=== PATIENT | female | born 1980 | race Caucasian/White ===

== ENCOUNTER 2017-04-06 19:14 | Day surgery (SDC) | payer OTHER ==
[2017-04-06 19:44] VITALS: BP 140/88; TEMP 98.6; BMI 29.0
--- NOTE | 2017-04-06 20:09 | PDOC.EVN ---
Event Note - Event Note Event Note: @2000: Please see full handwritten H&P in chart. In brief: H&P in triage HPI: 37 yo prior . Pt of Raad. Here for lower cramping, s/p intercourse yesterday. Past HX PIH, no CHTN. No VB, no HERRMANN, no visual changes, no RUQ pain. Good FM. EGA=30 weeks Review of systems: completed and neg per HPI Past med: HX DI 2008 Social: Past ETOH use, none currently Past Surg: Prior cholecystectomy, prior wisdom teeth All: sulfa Physical: 140/90s, 100, afebrile NAD Abd soft, NT CX 03/22/-2/I Monitors: Class i, irregular ctx on toco Assessment/Plan: 1. AMA (37 yo) 2. Elevated BPs- PIH eval, UP/Cr No evidence severe criteria at this time. 3. Lower pelvic contractions: Check cervical length. No FFN as sex within 24 hours 4. Observe BPs for now.
[2017-04-06 20:40] LABS: Hemoglobin 11.1 g/dL (12.0-16.0); Mean Corpuscular HGB CONC 33.9 g/dL (32.0-36.0); Mean Corpuscular Hemoglobin 31.2 pg (27.0-31.0); Mean Corpuscular Volume 91.9 fl (81.0-99.0); Mean Platelet Volume 9.4 fL (7.4-10.4); Platelet Count 158 thou/uL (130-400); Red Blood Cell (RBC) Count 3.55 mill/uL (4.20-5.40)
--- NOTE | 2017-04-06 20:59 | ULT ---
OB ULTRASOUND LIMITED 04/06/17 CLINICAL HISTORY: labor. Clinical evaluation of cervical length is requested. FINDINGS: Limited ultrasound of the pelvis performed to evaluate cervical length, which, as demonstrated sonogr aphically is slightly greater than 3 cm. IMPRESSION: Limited OB ultrasound to evaluate cervical length, which reveals a cervical length of slightly greate r than 3 cm. POS: [facility]
[2017-04-06 21:00] LABS: ALT (SGPT) 42 U/L (8-55); AST (SGOT) 36 U/L (5-34); Albumin 3.1 g/dL (3.5-5.0); Alkaline Phosphatase 106 U/L (40-150); Anion Gap 10 mmol/L (10-20); BUN (Urea Nitrogen) 5 mg/dL (7.0-18.7); Bilirubin, Total 0.3 mg/dL (0.2-1.2); Calc. Creatinine Clearance 150 mL/min (70-130); Calcium 8.1 mg/dL (7.8-10.44); Carbon Dioxide 20 mmol/L (22-29); Chloride 108 mmol/L (98-107); Estimated GFR-MDRD Greater than 90; Globulin 2.9 g/dL (2.4-3.5); Glucose 111 mg/dL (70-105); Potassium 3.3 mmol/L (3.5-5.1); Sodium 135 mmol/L (136-145)
--- NOTE | 2017-04-06 21:19 | PDOC.EVN ---
Event Note - Event Note Event Note: Labs seen: normal. Creatinine normal. Cervical length is 3.3 (normal). Awaiting U Protein. Pressures 130/70s.
[2017-04-06 22:20] LABS: Creatinine, Urine 77.37 mg/dL (47-110)
--- NOTE | 2017-04-06 22:26 | PDOC.EVN ---
Event Note - Event Note Event Note: @2230: UP/Cr ratio is normal at 0.1. Ok for outpatient follow up. BP check in 48 hours.
== END 2017-04-06 22:35 | disposition home or self-care (01) ==
LOC: L&D/OP 19:14
PROVIDERS: ATTEND Obstetrics & Gynecology
DX: O60.03 Preterm labor without delivery, third trimester (principal); O09.523 Supervision of elderly multigravida, third trimester; Z3A.30 30 weeks gestation of pregnancy; Z88.2 Allergy status to sulfonamides; Z90.49 Acquired absence of other specified parts of digestive tract
CPT/HCPCS: 36415; 76815; 80053; 82570; 84156; 85027; 99284

== ENCOUNTER 2017-04-12 11:52 | Inpatient (IN) | payer OTHER ==
[2017-04-12] MEDS: Lactated Ringer's 1,000 ML IV SCH ×2 (12:23→13:28)
[2017-04-12] MEDS ORDERED: Magnesium Sulfate 20 gm/500 ml 20 GM/500 ML BAG ONE (12:25)
[2017-04-12] MEDS ORDERED: Betamet Acet/Betamet Na Ph 30 MG/5 ML VIAL ONE (12:28)
[2017-04-12] MEDS ORDERED: Ondansetron HCl/PF 4 MG/2 ML Vial IVP PRN ×3 (12:29→19:57)
[2017-04-12] MEDS ORDERED: Calcium Gluconate 4.6 MEQ in Sodium Chloride 0.9% 100 ML IVPB PRN (12:29)
[2017-04-12] MEDS ORDERED: Acetaminophen 500 MG TAB PO PRN (12:29)
[2017-04-12] MEDS ORDERED: Promethazine HCl 25 MG/ML VIAL IM PRN ×2 (12:29→15:12)
[2017-04-12] MEDS ORDERED: Docusate 100 MG CAP PO PRN (12:29)
[2017-04-12] MEDS ORDERED: Magnesium Sulfate 20 gm/500 ml 20 GM/500 ML BAG IVPB SCH (12:30)
[2017-04-12] MEDS ORDERED: Magnesium Sulfate 20 GM/WATER 500 ML BAG IVPB SCH (12:30)
[2017-04-12 12:35] VITALS: BMI 28.8
--- NOTE | 2017-04-12 12:44 | PDOC.LDHP ---
Labor and Delivery H&P Chief complaint: contractions HPI: 36 yo WF EDC= 06/15/17 presents c/o painful UCs and bleeding since this AM. Current gestational age (weeks): 30 Due date: 06/15/17 Dating criteria: last menstrual period, first trimester ultrasound Grav: 2 Para: 1 Current complications: hypertension Abnormal US findings: No Past Medical History: h/o inductiomn for PIH Current medications: pre-rios vitamins Allergies/Adverse Reactions: Allergies Allergy/AdvReac Type Severity Reaction Status Date / Time Sulfa (Sulfonamide Allergy Intermediate Rash Verified 04/06/17 19:35 Antibiotics) Social history: alcohol use - Physical Exam Vital signs reviewed and normal: yes General: breathing through contractions Heart: RRR Lungs: nonlabored breathing Abdomen: gravid Extremeties: trace edema FHT: variability present - Vaginal Exam cm dilated: 4 Effacement: 100% Station: -2 - Assessment 30 weeks, PTL - Plan Plan: admit to L&D, magnesium for neuroprotection, other (Steroids for FLM Dr. Shankar notified Neonatology notified)
[2017-04-12 12:51] LABS: Hemoglobin 11.6 g/dL (12.0-16.0); Mean Corpuscular HGB CONC 34.9 g/dL (32.0-36.0); Mean Corpuscular Hemoglobin 31.2 pg (27.0-31.0); Mean Corpuscular Volume 89.5 fl (81.0-99.0); Mean Platelet Volume 9.6 fL (7.4-10.4); Platelet Count 168 thou/uL (130-400); RBC Distribution Width 12.5 % (11.5-14.5); Red Blood Cell (RBC) Count 3.71 mill/uL (4.20-5.40)
[2017-04-12 13:11] LABS: ALT (SGPT) 34 U/L (8-55); AST (SGOT) 35 U/L (5-34); Albumin 3.3 g/dL (3.5-5.0); Alkaline Phosphatase 105 U/L (40-150); Anion Gap 13 mmol/L (10-20); BUN (Urea Nitrogen) 6 mg/dL (7.0-18.7); Bilirubin, Total 0.4 mg/dL (0.2-1.2); Calc. Creatinine Clearance 147 mL/min (70-130); Calcium 8.3 mg/dL (7.8-10.44); Carbon Dioxide 20 mmol/L (22-29); Chloride 105 mmol/L (98-107); Estimated GFR-MDRD Greater than 90; Globulin 2.7 g/dL (2.4-3.5); Glucose 104 mg/dL (70-105); Magnesium 1.7 mg/dL (1.6-2.6); Potassium 3.8 mmol/L (3.5-5.1); Sodium 134 mmol/L (136-145)
[2017-04-12] MEDS ORDERED: Ampicillin 2 GM, Syringe 5.2 ML in Sterile Water 14.8 ML SLOW IVP SCH (13:15)
[2017-04-12 13:33] LABS: HBSAg Index 0.13 S/CO (0-0.99); HIV (1/2) Antibody/Antigen Non-Reactive (NonReactive); HIV 1/2 INDEX 0.13 S/CO (<1.00); Hep B Surf Ag Non-Reactive S/CO (NonReactive)
[2017-04-12 13:42] LABS: Syphilis Antibody Nonreactive (Nonreactive); Syphilis Antibody Index 0.05 S/CO (<1.00 Non-Reactive)
[2017-04-12] MEDS ORDERED: Bupivacaine 0.5% 20 ML, Fentanyl 400 MCG in Sodium Chloride 0.9% 72 ML EPIDURAL SCH (14:15)
[2017-04-12] MEDS ORDERED: Fentanyl 100 MCG/2 ML VIAL EPIDURAL ONE (14:40)
[2017-04-12] MEDS ORDERED: Fentanyl 100 MCG/2 ML VIAL ONE (14:45)
[2017-04-12] MEDS ORDERED: Acetaminophen 325 MG TAB PO PRN (15:12)
[2017-04-12] MEDS ORDERED: Eucerin (Mineral Oil/Petrolatum,White) 30 gm Jar TOP PRN (15:12)
[2017-04-12] MEDS ORDERED: Lactated Ringer's 500 ML IV PRN (15:12)
[2017-04-12] MEDS ORDERED: ePHEDrine/0.9% NaCl/PF SYRINGE 50 mg/10 ml SLOW IVP PRN (15:12)
[2017-04-12] MEDS ORDERED: Naloxone HCl 0.4 mg/ml Vial IVP PRN ×2 (15:12)
[2017-04-12] MEDS ORDERED: diphenhydrAMINE 50 MG/ML VIAL IVP PRN (15:12)
[2017-04-12] MEDS ORDERED: [UNRECOGNIZED DRUG - REMARK] FS SCH (15:15)
[2017-04-12] MEDS ORDERED: Fentanyl 4mcg/Marcaine 0.1% Cassette 100 ML EPIDURAL SCH (15:15)
[2017-04-12 16:56] LABS: Bilirubin Negative (Negative); Blood, Urine Moderate (Negative); Clarity CLEAR (Clear); Glucose, Urine (Dipstick) Negative (Negative); Leukocyte Negative (Negative); Nitrite Negative (Negative); Protein, Urine (Dipstick) Negative (Neg-Trace); Specific Gravity, Urine 1.039 (1.002-1.036); Urobilinogen 0.2 mg/dL (0.2-1.0); pH, Urine 6.5 (5.0-9.0)
[2017-04-12 16:57] LABS: Bacteria/HPF None Seen HPF (None Seen); Hyaline Casts/LPF 0-3 HYALINE CAST LPF (0-3 Hyaline); Pathc Cast-AUWi Flag 0.27 (0-2.49); RBC/HPF 21-50 HPF (0-3); WBC/HPF 0-3 HPF (0-3)
[2017-04-12 17:01] LABS: Renal Epithelial None Seen HPF (0-3); Transitional Epithelial NONE SEEN HPF (0-3)
[2017-04-12] MEDS ORDERED: LR / Pitocin 40 units/1000 ml 1,000 ML ONE (17:38)
[2017-04-12] MEDS ORDERED: Lidocaine 1% (PF) 30 ML VIAL ONE (17:39)
[2017-04-12] MEDS: Betamet Acet/Betamet Na Ph 30 MG/5 ML VIAL IM SCH (19:20)
[2017-04-12] MEDS ORDERED: Acetaminophen/Codeine 30-300mg Tablet PO PRN (19:57)
[2017-04-12] MEDS ORDERED: Adacel (T-DAP) 0.5 ML VIAL IM ONE (19:57)
[2017-04-12] MEDS ORDERED: Milk Of Magnesia 30 ML UDCUP PO PRN (19:57)
[2017-04-12] MEDS ORDERED: Bisacodyl 10 MG SUPP PR PRN (19:57)
[2017-04-12] MEDS ORDERED: Lanolin Ointment 7 GM TUBE TOP PRN (19:57)
[2017-04-12] MEDS ORDERED: LR / Pitocin 40 units/1000 ml 1,000 ML IV SCH (20:00)
--- NOTE | 2017-04-12 20:13 | OP ---
DATE OF DELIVERY: 04/12/2017 DELIVERING PHYSICIAN: Alvaro Vázquez M.D. ATTENDING PHYSICIAN: Zandra Shankar M.D. PREOPERATIVE DIAGNOSIS: A 30-week intrauterine with labor. POSTOPERATIVE DIAGNOSIS: A 30-week intrauterine with labor. PROCEDURE: Vaginal delivery. ESTIMATED BLOOD LOSS: 250 mL TECHNIQUE IN DETAIL: I was called to see the patient for a persistent variable appearing deceleratio ns. On exam, the patient was noted to be completely dilated with a bulging bag. The head was not well placed across the cervix. I needled the membranes to allow a slow escape of clear amniotic fluid. This brought the baby's head down and she was able to deliver within a single push. NICU per sonnel were in attendance. There was a delivery of a viable male with weight and Apgars pending was accomplished. The placenta was delivered, intact Anderson and was sent to pathology. The perineum wa s intact. At the conclusion of the case, her uterus was firm. The baby was taken to the NICU for fu rther evaluation.
[2017-04-12] MEDS ORDERED: Docusate Calcium (SURFAK) 240 MG CAP PO SCH (21:00)
[2017-04-13] MEDS: Ibuprofen 800 MG TAB PO SCH ×5 (02:16→21:24)
[2017-04-13] MEDS: Lactated Ringer's 1,000 ML IV SCH ×4 (06:28→22:44)
[2017-04-13 06:50] LABS: Hemoglobin 10.8 g/dL (12.0-16.0); Mean Corpuscular HGB CONC 33.9 g/dL (32.0-36.0); Mean Corpuscular Hemoglobin 31.1 pg (27.0-31.0); Mean Corpuscular Volume 91.8 fl (81.0-99.0); Mean Platelet Volume 9.8 fL (7.4-10.4); Platelet Count 167 thou/uL (130-400); RBC Distribution Width 12.7 % (11.5-14.5); Red Blood Cell (RBC) Count 3.46 mill/uL (4.20-5.40); White Blood Cell (WBC) Count 17.4 thou/uL (4.8-10.8)
[2017-04-13] MEDS ORDERED: traMADol HCl 50 MG TAB PO PRN (07:40)
[2017-04-13] MEDS ORDERED: Adacel (T-DAP) 0.5 ML VIAL IM ONE (07:40)
[2017-04-13] MEDS ORDERED: Milk Of Magnesia 30 ML UDCUP PO PRN (07:40)
[2017-04-13] MEDS ORDERED: Bisacodyl 10 MG SUPP PR PRN (07:40)
[2017-04-13] MEDS ORDERED: diphenhydrAMINE 25 MG CAP PO PRN (07:40)
[2017-04-13] MEDS ORDERED: Benzocaine/Menthol 20-0.5% 60 ML CAN TOP PRN (07:40)
[2017-04-13] MEDS ORDERED: Preparation H Ointment 28 GM TUBE PR PRN (07:40)
--- NOTE | 2017-04-13 07:44 | PDOC.EVN ---
Event Note - Event Note Event Note: No c/o's. Baby doing well in NICU. On bubble cpap with 27% os. received surfactant. O: 140/70 98.2 abdomen soft non tender fundus firm scant lochia A/P post day 1 -- at 30-31 weeks. ptl , possible abruption. routine care..d/c 04/14.
[2017-04-13] MEDS ORDERED: LR / Pitocin 40 units/1000 ml 1,000 ML IV SCH (07:45)
[2017-04-13] MEDS ORDERED: Ferrous Sulfate 325 MG TAB PO SCH (08:00)
[2017-04-13] MEDS ORDERED: FLU VACC QS2017-18 36 mo. & older 0.5 ML SYRINGE IM ONE (09:00)
[2017-04-13] MEDS: Prenatal Vitamin 1 TAB PO SCH ×2 (09:13→19:26)
[2017-04-13] MEDS: Docusate Calcium (SURFAK) 240 MG CAP PO SCH ×2 (09:13→21:24)
[2017-04-13] MEDS: Ferrous Sulfate 325 MG TAB PO SCH ×2 (09:13→19:28)
[2017-04-13] MEDS: FLUoxetine HCl 20 MG CAP PO SCH (09:14)
[2017-04-13] MEDS: Betamet Acet/Betamet Na Ph 30 MG/5 ML VIAL IM SCH (19:26)
[2017-04-13] MEDS ORDERED: hydrOXYzine 25 MG TAB PO SCH (20:30)
[2017-04-13 22:43] VITALS: TEMP 98.1
[2017-04-14] MEDS: Ibuprofen 800 MG TAB PO SCH ×2 (06:16)
--- NOTE | 2017-04-14 07:49 | PDOC.PP ---
Post Progress Note Post Day #: 2 Subjective: Baby is doing better. Would like to go home today. PO intake tolerated: yes Flatus: yes Ambulation: yes Vital Signs (12 hours) Temp Pulse Resp BP 04/13/17 19:55 97.6 F 95 20 137/80 Weight Weight 168 lb - Physical Examination General: NAD Cardiovascular: no m/r/g, RRR Respiratory: clear to auscultation bilaterally, non-labored breathing Abdominal: + bowel sounds, lochia, no distention, appropriately TTP Result Diagrams: 04/13/17 06:02 04/12/17 12:25 Additional Labs: Post Labs Blood Type O NEGATIVE 04/12/17 12:25 Hep Bs Antigen Non-Reactive S/CO (NonReactive) 04/12/17 12:25 - Assessment/Plan post day 2..recovering well. D/c home. F/u in 6 weeks. To continue prozac 40 mg/d. Will restart her buspar.
[2017-04-14] MEDS: Ferrous Sulfate 325 MG TAB PO SCH (08:14)
[2017-04-14 09:33] VITALS: BP 137/83
[2017-04-14] MEDS: FLUoxetine HCl 20 MG CAP PO SCH (10:02)
[2017-04-14] MEDS: Docusate Calcium (SURFAK) 240 MG CAP PO SCH (10:02)
[2017-04-14] MEDS: Prenatal Vitamin 1 TAB PO SCH ×2 (10:02→10:05)
--- NOTE | 2017-04-15 14:25 | DIS ---
DIAGNOSES: labor, 30-31 week gestation with spontaneous vaginal delivery. SUMMARY OF HOSPITAL COURSE: Ms. Cai is a 36-year-old white female who presented with regu lar painful contractions and vaginal bleeding to Labor and Delivery unit on 04/12/2017. She was init iated on magnesium for labor therapy and was also given IV hydration, pain medication. Also treated for group B strep prophylaxis due to her state. Unfortunately, the patient progresse d to spontaneous vaginal delivery of a viable male . knight, patient recovered satisf actorily and was discharged home on day 2. The baby was recovering in the NICU satisfacto luciano. She has a followup visit in 6 weeks .
== END 2017-04-14 11:29 | disposition home or self-care (01) | DRG 775 ==
LOC: L&D/OP 11:52 → L&D 13:07 → 3SW 04-13 13:47
PROVIDERS: ADMIT Obstetrics & Gynecology; ATTEND Obstetrics & Gynecology
PROC: 10E0XZZ Delivery of Products of Conception, External Approach (ICD-10-PCS; principal; 2017-04-12)
PROC: 10907ZC Drainage of Amniotic Fluid, Therapeutic from Products of Conception, Via Natural or Artificial Opening (ICD-10-PCS; 2017-04-12)
PROC: 3E0334Z Introduction of Serum, Toxoid and Vaccine into Peripheral Vein, Percutaneous Approach (ICD-10-PCS; 2017-04-13)
DX: O60.14X0 Preterm labor third trimester with preterm delivery third trimester, not applicable or unspecified (principal); O13.4 Gestational [pregnancy-induced] hypertension without significant proteinuria, complicating childbirth; Z3A.30 30 weeks gestation of pregnancy; Z37.0 Single live birth; O76 Abnormality in fetal heart rate and rhythm complicating labor and delivery
CPT/HCPCS: 36415; 51702; 76815; 80053; 81001; 82570; 83735; 85025; 85027; 85461; 86780; 86850; 86900; 86901; 87340; 87389; 88307; 90384; 90715; 96372; 99285; A4216; J0290; J0595; J0702; J2001; J2405; J3010; J3475; J3490; J7050

== ENCOUNTER 2017-12-25 19:39 | Inpatient (IN) | payer OTHER ==
[2017-12-25] MEDS ORDERED: Propofol 1,000 MG/100 ML VIAL IV ONE (19:45)
[2017-12-25 20:01] LABS: #Basophils 0.1 thou/uL (0.0-0.2); #Eosinphils 0.1 thou/uL (0.0-0.7); #Lymphocytes 1.6 thou/uL (1.20-3.40); #Monocytes 0.3 thou/uL (0.11-0.59); #Neutrophils 2.7 thou/uL (1.40-6.50); %Basophils 1.2 % (0.0-1.0); %Eosinophils 1.3 % (0.0-10.0); %Lymphocytes 34.2 % (21.0-51.0); %Monocytes 6.7 % (0.0-10.0); %Neutrophils 56.6 % (42.0-75.0); Hemoglobin 12.3 g/dL (12.0-16.0); Mean Corpuscular HGB CONC 34.2 g/dL (32.0-36.0); Mean Corpuscular Hemoglobin 32.6 pg (27.0-31.0); Mean Corpuscular Volume 95.3 fL (78.0-98.0); Mean Platelet Volume 8.2 fL (7.4-10.4); Platelet Count 204 thou/uL (130-400); RBC Distribution Width 13.1 % (11.5-14.5); Red Blood Cell (RBC) Count 3.78 mill/uL (4.20-5.40); White Blood Cell (WBC) Count 4.7 thou/uL (4.8-10.8)
[2017-12-25 20:07] LABS: Bilirubin Negative (Negative); Blood, Urine Negative (Negative); Clarity CLOUDY (Clear); Glucose, Urine (Dipstick) Negative (Negative); Leukocyte Trace (Negative); Nitrite Negative (Negative); Protein, Urine (Dipstick) Negative (Neg-Trace); Specific Gravity, Urine 1.005 (1.002-1.036); Urobilinogen 0.2 mg/dL (0.2-1.0); pH, Urine 7.5 (5.0-9.0)
[2017-12-25 20:08] LABS: Bacteria/HPF None Seen HPF (None Seen); Hyaline Casts/LPF 7-10 HYALINE CAST LPF (0-3 Hyaline); Pathc Cast-AUWi Flag 1.88 (0-2.49); Pregnancy Test - Urine (BHCG) Negative (Negative); Pregu Control Background? CLEAR/WHITE (CLR/WHITE); Pregu Control Bar Appear? YES (CONTROL BAR); RBC/HPF 0-3 HPF (0-3); Specific Gravity 1.005 (1.002-1.036); Squamous Epithelial 0-3 HPF (0-3); WBC/HPF 0-3 HPF (0-3)
--- NOTE | 2017-12-25 20:16 | RAD ---
AP VIEW CHEST: HISTORY: A 37-year-old with a drug overdose. Altered mental status. TECHNIQUE: AP view chest is obtained on 12/25/2017. FINDINGS: Nasogastric and endotracheal tubes in place. Mild cardiomegaly is seen. The lungs are well aerated. No evidence of acute intrathoracic abnormality is seen. No evidence of effusions, pneumonia, or pn eumothorax is seen. IMPRESSION: Nasogastric and endotracheal tubes in good position. POS: [facility]
[2017-12-25 20:17] LABS: Amphetamine Not Detected (NotDetected); Barbiturates Screen Not Detected (NotDetected); Benzodiazepine Screen Detected (NotDetected); Cocaine Metabolite Screen Not Detected (NotDetected); Medtox Control Line Valid? VALID (VALID); Medtox Reader # READER 4; Methadone Not Detected (NotDetected); Methamphetamine Not Detected (NotDetected); Opiate Screen Not Detected (NotDetected); Oxycodone Screen Not Detected (NotDetected); Phencyclidine (PCP) Not Detected (NotDetected); THC/Cannabinoid Screen Not Detected (NotDetected); Tricyclic Screen Detected (NotDetected)
[2017-12-25 20:21] LABS: Acetaminophen Less than 6.0 mcg/mL (10.0-30.0); Alcohol 126 mg/dL (Less than 10); Salicylate Less than 8.0 mg/dL (15.0-30.0)
[2017-12-25 20:27] LABS: Actual Bicarbonate (HCO3a) 20.3 mEq/L (22-28); Analyzer IN Cardio ER; Base Excess (BEa) -3.8 mEq/L (-2.0 to +3.0); CO2 Tension 33.9 mmHg (35.0-45.0); Calcium, Ionized 1.18 mmol/L (1.12-1.30); Carboxyhemoglobin (COHb) 0.3 gm% (0.0-3.0); Hemoglobin (Hb) 12.6 g/dL (12.0-16.0); O2 Tension (PaO2) 149.6 mmHg (80.0-100.0); Potassium - ABG Lab 3.56 mmol/L (3.70-5.30)
--- NOTE | 2017-12-25 20:27 | CT ---
CT BRAIN: HISTORY: A 37-year-old with a history of an overdose. TECHNIQUE: Noncontrast enhanced CT images of the brain are obtained from the base of the skull through the verte x. Brain and bone windows are obtained. FINDINGS: CT images of the brain demonstrate the brain to be unremarkable. No evidence of intracranial masses, hemorrhages, strokes, or contusions seen. IMPRESSION: Normal CT brain. POS: [facility]
--- NOTE | 2017-12-25 20:28 | CT ---
CT CERVICAL SPINE: HISTORY: Altered mental status. TECHNIQUE: Axial images are obtained with coronal and sagittal reconstructions. FINDINGS: CT images of the cervical spine demonstrate cervical spine alignment to be within normal limits. No evidence of fractures or subluxations seen. Vertebral bodies and facets are in normal alignment. IMPRESSION: Normal CT cervical spine. POS: [facility]
[2017-12-25 20:30] LABS: Troponin I Less than 0.010 ng/mL (< 0.028)
[2017-12-25 20:39] LABS: ALV-art Gradient 235.825 (0-20); Puncture Site RBA
[2017-12-25 20:41] LABS: ALT (SGPT) 37 U/L (8-55); AST (SGOT) 33 U/L (5-34); Albumin 4.1 g/dL (3.5-5.0); Alkaline Phosphatase 65 U/L (40-150); Anion Gap 14 mmol/L (10-20); BUN (Urea Nitrogen) 11 mg/dL (7.0-18.7); Bilirubin, Total Less than 0.2 mg/dL (0.2-1.2); Calc. Creatinine Clearance 0 mL/min (70-130); Calcium 8.7 mg/dL (7.8-10.44); Carbon Dioxide 22 mmol/L (22-29); Chloride 110 mmol/L (98-107); Estimated GFR-MDRD 81; Globulin 2.2 g/dL (2.4-3.5); Glucose 106 mg/dL (70-105); Potassium 3.5 mmol/L (3.5-5.1); Protein, Total 6.3 g/dL (6.0-8.3); Sodium 142 mmol/L (136-145)
[2017-12-25] MEDS ORDERED: Dextrose 5 % And 0.9 % NaCl 1,000 ML IV SCH ×2 (22:20→22:30)
[2017-12-25] MEDS ORDERED: Acetaminophen 650 MG/20.3 ML UDCUP PO PRN (22:30)
[2017-12-25] MEDS ORDERED: Acetaminophen 650 MG Suppository PR PRN (22:30)
[2017-12-25] MEDS ORDERED: Ventilator Sedation Protocol 1 EACH FS SCH (22:30)
[2017-12-25] MEDS ORDERED: Lorazepam 2 MG/ML VIAL SLOW IVP PRN (22:36)
[2017-12-25] MEDS ORDERED: Fentanyl BOLUS 250 ML IVPB PRN (22:36)
[2017-12-25] MEDS ORDERED: fentaNYL Citrate/PF 2,000 MCG in Sodium Chloride 0.9% 60 ML IV SCH (22:36)
[2017-12-25] MEDS ORDERED: Propofol BOLUS 1,000 MG/100 ML VIAL IV PRN (22:36)
[2017-12-25] MEDS ORDERED: DISCONTINUE PREVIOUS NARCOTIC PAIN MEDICATIONS AND BENZODIAZEPINES FS SCH (22:36)
[2017-12-25] MEDS ORDERED: Propofol 1,000 MG/100 ML VIAL IV PRN (22:36)
[2017-12-25] MEDS ORDERED: Morphine 4 MG/ML VIAL SLOW IVP PRN (22:37)
[2017-12-25] MEDS ORDERED: Ondansetron PF 4 MG/2 ML Vial IVP PRN (22:42)
[2017-12-25] MEDS ORDERED: Ondansetron ODT 4 MG TAB PO PRN (22:42)
--- NOTE | 2017-12-25 23:54 | HP ---
DATE OF ADMISSION: 12/25/2017 PRIMARY CARE PHYSICIAN: [facility] call admission. The patient follows Dr. Shankar. REASON FOR ADMISSION: Overdose. HISTORY OF PRESENT ILLNESS: The patient is a 37-year-old female with depression, was brought in by E with the above complaints. The EMS reported that patient got into an argument with her an d asked for a divorce, then left for the gym. When he returned, he found the patient face do wn surrounded by vomit and empty medication bottles that included Seroquel, Ambien, Prozac and other over the counter medications. When EMS arrived, the patient's GCS score was 4. She was awake, howev er, not responding. She was intubated by EMS and brought into the emergency room. In the emergency room, initial vital signs showed temperature 95.5, respiration of 16, pulse rate of 123 with blood pressure 125/69 with O2 saturation 99% on ventilation. CT head was negative. Cervica l spine CT was negative. EKG showed sinus tachycardia. Urine drug screen was positive for tricyclic s and benzodiazepines. Alcohol level was 126. test was negative. Chest x-ray was negativ e for infiltrate. PAST MEDICAL HISTORY: Depression with Zoloft overdose in 01/2017. The patient was admitted at this facility. She was discharged home with a safety plan. Alcohol abuse. PAST SURGICAL HISTORY: 1. Cholecystectomy. 2. Childbirth. ALLERGIES: The patient is allergic to SULFA. CURRENT HOME MEDICATIONS: To be verified. SOCIAL HISTORY: As discussed above. The patient has a history of alcoholism. She currently lives a t home. FAMILY HISTORY: Negative per previous record. REVIEW OF SYSTEMS: Cannot be obtained from the patient due to current cognitive status. Please note that history was obtained from the ER record no family at the bedside. PHYSICAL EXAMINATION: VITAL SIGNS: As discussed above. GENERAL: A 37-year-old female, intubated and sedated on mechanical ventilation. HEENT: Head atraumatic, normocephalic. Sclerae are anicteric. Pupils 3-4 mm with sluggish response to light. Endotracheal tube noted. LUNGS: Clear to auscultation bilaterally, no wheezing, rales or rhonchi. HEART: S1, S2 present. Regular rate and rhythm. No rubs or gallops. ABDOMEN: Soft. Bowel sounds present, no guarding or rigidity. EXTREMITIES: No edema or calf tenderness. NEUROLOGIC: Could not be done due to current cognitive status. PSYCHIATRIC: Could not be done due to current cognitive status. SKIN: Warm and dry. LYMPH NODES: No palpable lymph nodes in the neck. PERIPHERAL VASCULAR: Radial pulses palpable bilaterally. MUSCULOSKELETAL: No joint swelling or tenderness. LABORATORY AND X-RAY FINDINGS: CBC showed WBC 4.7 with hemoglobin 12.3, hematocrit 36, platelet 204. ABG showed pH of 7.4 with pCO2 of 33.9, pO2 149 with bicarbonate 21. Chemistries showed sodium 142 , potassium 3.5, chloride 110, bicarbonate 22, BUN 11, creatinine 0.79. Troponin was negative. Urin alysis showed 7-10 hyalin cast. Urine negative. Urine drug screen as discussed above. Ch est x-ray by my review as discussed above. EKG by my review as discussed above. IMPRESSION: 1. Acute respiratory failure secondary to drug overdose. 2. Alcohol intoxication. 3. Depression with Zoloft overdose in 01/2017. 4. History of alcoholism. 5. Chronic kidney disease stage 2. 6. Dehydration. PLAN: The patient will be monitored in the intensive care unit. Poison Control has been notified. They recommended conservative management. She received charcoal in the ER. We will continue aggress jasvir IV hydration. Critical care consultation. A.m. labs. Repeat chest x-ray and ABG in a.m. We wi ll consult [facility] when medically stable.
[2017-12-26 03:58] LABS: #Eosinphils 0.1 thou/uL (0.0-0.7); #Monocytes 0.9 thou/uL (0.11-0.59); #Neutrophils 7.1 thou/uL (1.40-6.50); %Basophils 0.3 % (0.0-1.0); %Eosinophils 0.6 % (0.0-10.0); %Lymphocytes 11.1 % (21.0-51.0); %Monocytes 9.5 % (0.0-10.0); %Neutrophils 78.5 % (42.0-75.0); Hemoglobin 12.4 g/dL (12.0-16.0); Mean Corpuscular HGB CONC 32.9 g/dL (32.0-36.0); Mean Corpuscular Hemoglobin 31.5 pg (27.0-31.0); Mean Corpuscular Volume 95.6 fL (78.0-98.0); Mean Platelet Volume 8.3 fL (7.4-10.4); Platelet Count 213 thou/uL (130-400); RBC Distribution Width 13.3 % (11.5-14.5); Red Blood Cell (RBC) Count 3.92 mill/uL (4.20-5.40); White Blood Cell (WBC) Count 9.1 thou/uL (4.8-10.8)
[2017-12-26 04:24] LABS: ALT (SGPT) 36 U/L (8-55); AST (SGOT) 23 U/L (5-34); Albumin 3.9 g/dL (3.5-5.0); Alkaline Phosphatase 61 U/L (40-150); Anion Gap 10 mmol/L (10-20); BUN (Urea Nitrogen) 9 mg/dL (7.0-18.7); Bilirubin, Total 0.4 mg/dL (0.2-1.2); Calc. Creatinine Clearance 82 mL/min (70-130); Calcium 9.2 mg/dL (7.8-10.44); Carbon Dioxide 23 mmol/L (22-29); Chloride 115 mmol/L (98-107); Estimated GFR-MDRD 57; Globulin 2.4 g/dL (2.4-3.5); Glucose 122 mg/dL (70-105); Phosphorus 1.9 mg/dL (2.3-4.7); Potassium 3.6 mmol/L (3.5-5.1); Protein, Total 6.3 g/dL (6.0-8.3); Sodium 144 mmol/L (136-145)
[2017-12-26] MEDS: Dextrose 5 %-0.45 % NaCl 1,000 ML IV SCH ×4 (04:41→20:00)
[2017-12-26] MEDS ORDERED: Potassium Phosphate 15 MMOL in Sodium Chloride 0.9% 250 ML 250 ML IVPB SCH (05:00)
[2017-12-26] MEDS ORDERED: Sodium Chloride 0.9% 500 ML IV SCH (05:00)
[2017-12-26 07:05] LABS: Actual Bicarbonate (HCO3a) 18.2 mEq/L (22-28); Base Excess (BEa) -5.5 mEq/L (-2.0 to +3.0); Calcium, Ionized 1.22 mmol/L (1.12-1.30); Carboxyhemoglobin (COHb) 0.7 gm% (0.0-3.0); Hemoglobin (Hb) 11.7 g/dL (12.0-16.0); O2 Tension (PaO2) 120.7 mmHg (80.0-100.0); Potassium - ABG Lab 3.76 mmol/L (3.70-5.30)
[2017-12-26 07:08] LABS: Puncture Site RR
[2017-12-26] MEDS: Famotidine/PF 20 mg/2ml Vial SLOW IVP SCH ×2 (08:30→20:00)
[2017-12-26] MEDS: Enoxaparin Sodium 40 MG/0.4 ML SYRINGE SC SCH (08:30)
--- NOTE | 2017-12-26 09:30 | RAD ---
CHEST ONE VIEW: History: Dyspnea. Comparison: 12-25-17 FINDINGS: Cardiac silhouette is magnified by projection. Pulmonary vasculature less engorged than on the prior study. Mediastinum is midline. Lines and tubes are unchanged in position. No evidence of pneumothorax . IMPRESSION: Improved aeration of the lungs with decrease in degree of pulmonary vascular congestion. POS: [facility]
[2017-12-26] MEDS: Thiamine HCl 200 MG/2 ML VIAL SLOW IVP SCH (09:46)
--- NOTE | 2017-12-26 10:03 | PDOC.PN ---
- Subjective Encounter Start Date: 12/26/17 Encounter Start Time: 08:50 Patient seen and examined. pt is intubated, present bedside, No overnight events - Objective Resuscitation Status: Resuscitation Status FULL:Full Resuscitation MAR Reviewed: Yes Vital Signs & Weight: Vital Signs (12 hours) Temp Pulse Resp BP Pulse Ox 12/26/17 08:00 16 12/26/17 06:45 73 94/63 12/26/17 06:00 16 12/26/17 04:00 99.2 F 16 12/26/17 03:06 100 12/26/17 03:05 85 12/26/17 02:00 16 12/26/17 01:00 99.9 F H 12/26/17 00:00 16 12/25/17 22:27 88 100/67 12/25/17 22:20 16 100 12/25/17 22:10 98.3 F Weight Admit Weight 160 lb 14.999 oz Weight 168 lb 3.403 oz Most Recent Monitor Data Heart Rate from ECG 67 NIBP 92/58 NIBP BP-Mean 69 Respiration from ECG 16 SpO2 100 I&O: 12/25/17 12/26/17 12/27/17 06:59 06:59 06:59 Intake Total 1749 212 Output Total 1550 275 Balance 199 -63 Result Diagrams: 12/26/17 03:39 12/26/17 03:39 Radiology Reviewed by me: Yes (chest xray) EKG Reviewed by me: Yes (nsr) Phys Exam - Physical Examination Constitutional: NAD intubated HEENT: PERRLA, sclera anicteric Neck: no JVD, supple Respiratory: no wheezing, no rales, no rhonchi Cardiovascular: RRR, no significant murmur, no rub Gastrointestinal: soft, no distention, positive bowel sounds Musculoskeletal: no edema, pulses present scd+ unable to assess Lymphatic: no nodes Deviation from normal: unable to assess Skin: no rash, normal turgor Dx/Plan (1) Acute respiratory failure Code(s): J96.00 - ACUTE RESPIRATORY FAILURE, UNSP W HYPOXIA OR HYPERCAPNIA Status: Acute Comment: due to drug overdose (2) Dehydration Code(s): E86.0 - DEHYDRATION Status: Acute (3) Drug overdose Code(s): T50.901A - POISONING BY UNSP DRUG/MEDS/BIOL SUBST, ACCIDENTAL, INIT Status: Acute (4) Hypophosphatemia Code(s): E83.39 - OTHER DISORDERS OF PHOSPHORUS METABOLISM Status: Acute (5) Suicidal ideation Code(s): R45.851 - SUICIDAL IDEATIONS Status: Acute (6) Alcohol abuse Code(s): F10.10 - ALCOHOL ABUSE, UNCOMPLICATED Status: Chronic (7) Anxiety and depression Code(s): F41.9 - ANXIETY DISORDER, UNSPECIFIED; F32.9 - MAJOR DEPRESSIVE DISORDER, SINGLE EPISODE, UNSPECIFIED Status: Chronic (8) CKD (chronic kidney disease) stage 2, GFR 60-89 ml/min Code(s): N18.2 - CHRONIC KIDNEY DISEASE, STAGE 2 (MILD) Status: Chronic - Plan cont current plan of care, plan discussed w/ family * continue vent management as per pulmonary * once pt is more alert, then pt will be extubated * then will need MHMR evaluation and placement to psych facility * medication reviewed as below * symptomatic treatment * discussed with . Review of Systems - Review of Systems Other: unable to review due to intubated status - Medications/Allergies Allergies/Adverse Reactions: Allergies Allergy/AdvReac Type Severity Reaction Status Date / Time Sulfa (Sulfonamide Allergy Intermediate Rash Verified 04/06/17 19:35 Antibiotics) Medications: Current Medications Acetaminophen (Tylenol Elixir) 650 mg PO Q6H PRN PRN Reason: Fever > 101 or Mild Pain Acetaminophen (Tylenol) 650 mg [place] Q6H PRN PRN Reason: Fever > 101 or Mild Pain Albuterol/Ipratropium (Duoneb) 3 ml NEB Q6H PRN PRN Reason: SOB &/or Wheezing Enoxaparin Sodium (Lovenox) 40 mg SC 0900 [facility] Last Admin: 12/26/17 08:30 Dose: 40 mg Famotidine (Pepcid) 20 mg SLOW IVP Q12HR [facility] Last Admin: 12/26/17 08:30 Dose: 20 mg Fentanyl Citrate 2,000 mcg/ (Sodium Chloride) 100 mls @ 0 mls/hr IV INF [facility]; Protocol Stop: 01/24/18 22:36 Fentanyl Citrate (Fentanyl Bolus) 250 mls @ 0 mls/hr IVPB PRN PRN PRN Reason: Breakthrough pain/agitation Stop: 01/24/18 22:36 Dextrose/Sodium Chloride (D5 1/2 Ns) 1,000 mls @ 150 mls/hr IV .Q6H40M [facility] Last Admin: 12/26/17 04:41 Dose: 1,000 mls Lorazepam (Ativan) 2 mg SLOW IVP Q1H PRN PRN Reason: Breakthrough agitation Stop: 01/24/18 22:36 Morphine Sulfate (Morphine) 2 mg SLOW IVP Q1H PRN PRN Reason: BREAKTHROUGH PAIN/AGITATION Stop: 01/24/18 22:38 Discontinue Previous Narcotic Pain Medications And Benzodiazepines 1 each FS .ONE [facility] Stop: 01/24/18 22:36 Ondansetron HCl (Zofran Odt) 4 mg PO Q6H PRN PRN Reason: Nausea/Vomiting Ondansetron HCl (Zofran) 4 mg IVP Q6H PRN PRN Reason: Nausea/Vomiting Propofol (Diprivan) 1,000 mg IV INF PRN; Protocol PRN Reason: TO ACHIEVE GOAL RASS Stop: 01/24/18 22:36 Propofol (Diprivan Bolus) 20 mg IV Q5MIN PRN PRN Reason: BREAKTHROUGH AGITATION Stop: 01/24/18 22:36 Sodium Chloride (Flush - Normal Saline) 10 ml IVF Q12HR [facility] Last Admin: 12/26/17 08:30 Dose: Not Given Sodium Chloride (Flush - Normal Saline) 10 ml IVF PRN PRN PRN Reason: Saline Flush Thiamine HCl (Thiamine Hcl) 100 mg SLOW IVP DAILY [facility] Last Admin: 12/26/17 09:46 Dose: 100 mg
--- NOTE | 2017-12-26 12:23 | CON ---
DATE OF CONSULTATION: 12/26/2017 SERVICE: Pulmonary Medicine. REASON FOR CONSULTATION: ICU patient. HISTORY OF PRESENT ILLNESS: The patient is a 37-year-old white female with past medical history sign ificant for depression. She actually just recently got out of an inpatient psychiatry war d. Ultimately, she got access to multiple different medications including Klonopin, multiple SSRIs, and Ambien. She took the entire bottles of all of these things and went into a deep sleep. She was brought in by EMS. In the ER, her GCS was low. Ultimately, she was intubated to protect her airway. She had multiple studies including CT of the head and C-spine that were unremarkable. At this poin t, there has been no interval change to her condition. Overnight, there were no issues. She is not on any sedation whatsoever. She is breathing comfortably. PAST MEDICAL HISTORY: 1. Major depressive disorder with history of suicide attempt. 2. Alcohol abuse. PAST SURGICAL HISTORY: Cholecystectomy. ALLERGIES: SULFA. MEDICATIONS: A list of her inpatient medications were reviewed. Multiple small updates were made. SOCIAL HISTORY: She has a history of heavy alcohol use. She currently lives at home. She has no ex posures to illicit drugs or tobacco products. FAMILY HISTORY: Noncontributory. REVIEW OF SYSTEMS: This cannot be obtained, as the patient is currently intubated and under the infl uence of multiple medications. PHYSICAL EXAMINATION: VITAL SIGNS: Afebrile, pulse 71, blood pressure 97/59, respirations 16, saturation 98% on 21% FiO2 a nd a PEEP of 5. GENERAL: Patient is intubated. HEENT: Normocephalic, atraumatic. Sclerae are white, conjunctivae pink. Oral and nasal mucosa is m oist without lesions. LUNGS: Decent air entry. There is no prolonged expiratory phase or wheezing present. HEART: Normal rate, regular. ABDOMEN: Soft, nontender, nondistended. Bowel sounds are positive. MUSCULOSKELETAL: No cyanosis or clubbing. There is no pitting in the bilateral lower extremities. NEUROLOGIC: Grossly nonfocal. She has a grimace, and withdraws from noxious stimuli in the bilatera l upper and lower extremities. Her pupils are equal, round, and reactive. She does over-breathe the ventilator when stimulated appropriately. At this time, she is not following any commands and remai ns in a deeply sedated state. LABORATORY DATA: WBC 9.1, hemoglobin 12.4, platelets 213,000. PH 7.40, pCO2 of 30, pO2 of 120 on 40 % FiO2 at that time. Phosphorus 1.9 and potassium 3.6. Basic metabolic profile, liver function stud ies are, otherwise, unremarkable. Cardiac enzymes negative x1. Urinalysis is negative, urine for pr egnancy negative. Plasma alcohol 126, benzodiazepines and TCAs are both detected in her urine drug s creen. Outside of that, it is completely unremarkable. IMAGING: Chest x-ray demonstrates no acute cardiopulmonary abnormality identified. There is some bl unting of the left costophrenic angle, possibly associated with some mild volume loss there. Endotra cheal tube is in perfect location, 2 cm above the level of the tracey. There is an enteric catheter coursing below the level of the diaphragm in the midline. CT of the C-spine demonstrates no acute os seous abnormality. CT of the brain demonstrates no acute intracranial abnormality. ASSESSMENT: 1. Metabolic encephalopathy. 2. Respiratory failure, secondary to inability to protect airway. 3. Suicide attempt with benzodiazepines, TCAs, SSRIs 4. Alcohol abuse. DISCUSSION AND PLAN: All sedating medications will be discontinued. We will leave a little bit of niall ropofol on board in case she wakes up in the middle of the night. As soon as her mentation allows, deniz keller will proceed with a spontaneous breathing trial and subsequent extubation. All laboratories and im aging studies will be suspended at this time. If she develops increasing signs of sepsis, empiric an tibiotics, directed at aspiration-related organisms, will be initiated. Potassium and phosphorus jeramy l be replaced gently today.
[2017-12-27] MEDS: Dextrose 5 %-0.45 % NaCl 1,000 ML IV SCH (05:31)
[2017-12-27 07:09] LABS: Actual Bicarbonate (HCO3a) 16.3 mEq/L (22-28); Base Excess (BEa) -7.8 mEq/L (-2.0 to +3.0); CO2 Tension 29.1 mmHg (35.0-45.0); Calcium, Ionized 1.25 mmol/L (1.12-1.30); Carboxyhemoglobin (COHb) 1.7 gm% (0.0-3.0); Hemoglobin (Hb) 12.4 g/dL (12.0-16.0); O2 Tension (PaO2) 85.3 mmHg (80.0-100.0); Potassium - ABG Lab 3.59 mmol/L (3.70-5.30); pH, Arterial 7.37 (7.35-7.45)
[2017-12-27 07:15] LABS: Puncture Site RB
[2017-12-27 07:16] LABS: ALV-art Gradient 28.055 (0-20)
[2017-12-27] MEDS: Famotidine/PF 20 mg/2ml Vial SLOW IVP SCH (09:51)
[2017-12-27] MEDS: Enoxaparin Sodium 40 MG/0.4 ML SYRINGE SC SCH (09:51)
--- NOTE | 2017-12-27 10:22 | PDOC.PN ---
- Subjective Encounter Start Date: 12/27/17 Encounter Start Time: 09:50 Patient seen and examined. No overnight events this morning pt is extubated, still sleepy - Objective Resuscitation Status: Resuscitation Status FULL:Full Resuscitation MAR Reviewed: Yes Vital Signs & Weight: Vital Signs (12 hours) Pulse Resp BP Pulse Ox 12/27/17 08:00 97 12/27/17 07:27 97 12/27/17 07:15 87 127/87 12/27/17 06:00 15 12/27/17 04:00 12 12/27/17 03:30 70 104/68 12/27/17 02:00 15 12/27/17 00:00 19 Weight Admit Weight 160 lb 14.999 oz Weight 160 lb 0.889 oz Most Recent Monitor Data Heart Rate from ECG 74 NIBP 127/87 NIBP BP-Mean 100 Respiration from ECG 15 SpO2 100 I&O: 12/26/17 12/27/17 12/28/17 06:59 06:59 06:59 Intake Total 1749 3160 Output Total 1550 2055 350 Balance 199 1105 -350 Result Diagrams: 12/26/17 03:39 12/26/17 03:39 EKG Reviewed by me: Yes Phys Exam - Physical Examination Constitutional: NAD HEENT: PERRLA, moist MMs, sclera anicteric Neck: no JVD, supple Respiratory: no wheezing, no rales, no rhonchi Cardiovascular: RRR, no significant murmur, no rub Gastrointestinal: soft, non-tender, no distention, positive bowel sounds Musculoskeletal: no edema, pulses present Neurological: non-focal, normal sensation Lymphatic: no nodes Psychiatric: normal affect Skin: no rash, normal turgor Dx/Plan (1) Acute respiratory failure Code(s): J96.00 - ACUTE RESPIRATORY FAILURE, UNSP W HYPOXIA OR HYPERCAPNIA Status: Acute Comment: due to drug overdose (2) Dehydration Code(s): E86.0 - DEHYDRATION Status: Acute (3) Drug overdose Code(s): T50.901A - POISONING BY UNSP DRUG/MEDS/BIOL SUBST, ACCIDENTAL, INIT Status: Acute (4) Hypophosphatemia Code(s): E83.39 - OTHER DISORDERS OF PHOSPHORUS METABOLISM Status: Acute (5) Suicidal ideation Code(s): R45.851 - SUICIDAL IDEATIONS Status: Acute (6) Alcohol abuse Code(s): F10.10 - ALCOHOL ABUSE, UNCOMPLICATED Status: Chronic (7) Anxiety and depression Code(s): F41.9 - ANXIETY DISORDER, UNSPECIFIED; F32.9 - MAJOR DEPRESSIVE DISORDER, SINGLE EPISODE, UNSPECIFIED Status: Chronic (8) CKD (chronic kidney disease) stage 2, GFR 60-89 ml/min Code(s): N18.2 - CHRONIC KIDNEY DISEASE, STAGE 2 (MILD) Status: Chronic - Plan cont current plan of care, plan discussed w/ family * medication reviewed as below * symptomatic treatment * monitor for few hours and then will consider transfer to medical * will need [facility] evaluation when more alert * will need psych placement * discussed with . Review of Systems - Review of Systems Other: unable to review due to lethargic status - Medications/Allergies Allergies/Adverse Reactions: Allergies Allergy/AdvReac Type Severity Reaction Status Date / Time Sulfa (Sulfonamide Allergy Intermediate Rash Verified 04/06/17 19:35 Antibiotics) Medications: Current Medications Acetaminophen (Tylenol Elixir) 650 mg PO Q6H PRN PRN Reason: Fever > 101 or Mild Pain Last Admin: 12/27/17 09:51 Dose: 650 mg Acetaminophen (Tylenol) 650 mg [place] Q6H PRN PRN Reason: Fever > 101 or Mild Pain Albuterol/Ipratropium (Duoneb) 3 ml NEB Q6H PRN PRN Reason: SOB &/or Wheezing Enoxaparin Sodium (Lovenox) 40 mg SC 0900 [facility] Last Admin: 12/27/17 09:51 Dose: 40 mg Famotidine (Pepcid) 20 mg SLOW IVP Q12HR [facility] Last Admin: 12/27/17 09:51 Dose: 20 mg Dextrose/Sodium Chloride (D5 1/2 Ns) 1,000 mls @ 110 mls/hr IV .Q9H6M [facility] Last Admin: 12/27/17 05:31 Dose: 1,000 mls Discontinue Previous Narcotic Pain Medications And Benzodiazepines 1 each FS .ONE [facility] Stop: 01/24/18 22:36 Ondansetron HCl (Zofran Odt) 4 mg PO Q6H PRN PRN Reason: Nausea/Vomiting Ondansetron HCl (Zofran) 4 mg IVP Q6H PRN PRN Reason: Nausea/Vomiting Propofol (Diprivan) 1,000 mg IV INF PRN; Protocol PRN Reason: TO ACHIEVE GOAL RASS Stop: 01/24/18 22:36 Last Admin: 12/27/17 02:14 Dose: 1,000 mg Propofol (Diprivan Bolus) 20 mg IV Q5MIN PRN PRN Reason: BREAKTHROUGH AGITATION Stop: 01/24/18 22:36 Sodium Chloride (Flush - Normal Saline) 10 ml IVF Q12HR [facility] Last Admin: 12/27/17 09:52 Dose: 10 ml Sodium Chloride (Flush - Normal Saline) 10 ml IVF PRN PRN PRN Reason: Saline Flush Thiamine HCl (Thiamine Hcl) 100 mg SLOW IVP DAILY [facility] Last Admin: 12/26/17 09:46 Dose: 100 mg
--- NOTE | 2017-12-27 15:13 | PRG ---
DATE OF SERVICE: 12/27/2017 SERVICE: Pulmonary Medicine. INTERVAL HISTORY: The patient is doing outstanding from a respiratory standpoint. Denies any curren t chest pain, fevers, chills, shortness of breath. She is breathing comfortably on mechanical ventil ation on minimal support. Otherwise, there has been no interval change to her condition. PHYSICAL EXAMINATION: VITAL SIGNS: Afebrile, pulse 88, blood pressure 101/60, respirations 26, saturation 99% on 21% FiO2 and a PEEP of 5. GENERAL: The patient is awake and alert, in no apparent distress. LUNGS: Decent air entry with no prolonged expiratory phase, wheezing, rhonchi or crackles. HEART: Normal rate, regular. ABDOMEN: Soft, nontender, nondistended. Bowel sounds are positive. MUSCULOSKELETAL: No cyanosis or clubbing. There is no pitting in the bilateral lower extremities. NEUROLOGIC: Grossly nonfocal. ASSESSMENT: 1. Metabolic encephalopathy, resolving. 2. Polysubstance drug overdose with benzodiazepines, TCAs and SSRIs. 3. Respiratory failure secondary to inability to protect airway, resolved. 4. Alcohol abuse. DISCUSSION AND PLAN: We will put her on a spontaneous breathing trial. If she meets criteria, extub ation will be considered. We can consider her for transition to the floor this afternoon. Because o f the fever profile, I will empirically initiate a 5-day course of Augmentin, get a chest x-ray and b lood cultures. Rothman catheter will be removed as soon as she is extubated. We will feed her and min imize interventions moving forward if possible.
[2017-12-27] MEDS ORDERED: Amoxicillin/Potassium Clav 875 MG TAB PO SCH (15:15)
--- NOTE | 2017-12-27 17:11 | RAD ---
SINGLE VIEW CHEST: Date: 12/27/17 COMPARISON: 12/26/17. HISTORY: Fever. FINDINGS: Single view of the chest shows normal sized cardiomediastinal silhouette. The endotracheal tube and N G tube have been removed. There is no evidence of consolidation, mass, or pleural effusion. IMPRESSION: No evidence of acute cardiopulmonary disease. POS: TPC
[2017-12-27] MEDS: Thiamine HCl 200 MG/2 ML VIAL SLOW IVP SCH (20:50)
[2017-12-27] MEDS: Amoxicillin/Potassium Clav 875 MG TAB PO SCH (20:52)
[2017-12-27] MEDS ORDERED: Melatonin 3 MG TAB PO SCH (21:45)
[2017-12-28] MEDS: Amoxicillin/Potassium Clav 875 MG TAB PO SCH (08:02)
[2017-12-28] MEDS: Enoxaparin Sodium 40 MG/0.4 ML SYRINGE SC SCH (08:02)
[2017-12-28 08:37] LABS: Alcohol Less than 10 mg/dL (Less than 10); Anion Gap 11 mmol/L (10-20); BUN (Urea Nitrogen) 6 mg/dL (7.0-18.7); Calc. Creatinine Clearance 100 mL/min (70-130); Calcium 8.8 mg/dL (7.8-10.44); Carbon Dioxide 18 mmol/L (22-29); Chloride 112 mmol/L (98-107); Estimated GFR-MDRD 73; Glucose 101 mg/dL (70-105); Potassium 3.6 mmol/L (3.5-5.1); Sodium 137 mmol/L (136-145)
--- NOTE | 2017-12-28 10:13 | PDOC.PN ---
- Subjective Encounter Start Date: 12/28/17 Encounter Start Time: 08:50 Patient seen and examined. No new complaints. No overnight events - Objective Resuscitation Status: Resuscitation Status FULL:Full Resuscitation MAR Reviewed: Yes Vital Signs & Weight: Vital Signs (12 hours) Temp Pulse Resp BP Pulse Ox 12/28/17 08:00 95 12/28/17 07:57 98.3 F 72 18 104/69 95 12/28/17 04:09 98.0 F 80 16 104/72 98 12/28/17 00:36 98.9 F 80 16 103/68 94 L Weight Admit Weight 160 lb 14.999 oz Weight 160 lb 0.889 oz Most Recent Monitor Data Heart Rate from ECG 99 NIBP 102/61 NIBP BP-Mean 74 Respiration from ECG 18 SpO2 94 I&O: 12/27/17 12/28/17 12/29/17 06:59 06:59 06:59 Intake Total 3160 2280 Output Total 2055 1590 Balance 1105 690 Result Diagrams: 12/26/17 03:39 12/28/17 08:10 Phys Exam - Physical Examination Constitutional: NAD HEENT: PERRLA, moist MMs, sclera anicteric Neck: no JVD, supple Respiratory: no wheezing, no rales, no rhonchi Cardiovascular: RRR, no significant murmur, no rub Gastrointestinal: soft, non-tender, no distention, positive bowel sounds Musculoskeletal: no edema, pulses present Neurological: non-focal, normal sensation, moves all 4 limbs Lymphatic: no nodes Psychiatric: normal affect, A&O x 3 Skin: no rash, normal turgor Dx/Plan (1) Acute respiratory failure Code(s): J96.00 - ACUTE RESPIRATORY FAILURE, UNSP W HYPOXIA OR HYPERCAPNIA Status: Acute Comment: due to drug overdose (2) Dehydration Code(s): E86.0 - DEHYDRATION Status: Acute (3) Drug overdose Code(s): T50.901A - POISONING BY UNSP DRUG/MEDS/BIOL SUBST, ACCIDENTAL, INIT Status: Acute (4) Hypophosphatemia Code(s): E83.39 - OTHER DISORDERS OF PHOSPHORUS METABOLISM Status: Acute (5) Suicidal ideation Code(s): R45.851 - SUICIDAL IDEATIONS Status: Acute (6) Alcohol abuse Code(s): F10.10 - ALCOHOL ABUSE, UNCOMPLICATED Status: Chronic (7) Anxiety and depression Code(s): F41.9 - ANXIETY DISORDER, UNSPECIFIED; F32.9 - MAJOR DEPRESSIVE DISORDER, SINGLE EPISODE, UNSPECIFIED Status: Chronic (8) CKD (chronic kidney disease) stage 2, GFR 60-89 ml/min Code(s): N18.2 - CHRONIC KIDNEY DISEASE, STAGE 2 (MILD) Status: Chronic - Plan cont current plan of care, plan discussed w/ family * repeat labs today * call [facility] today * will need psych placement * medically stable for discharge * medication reviewed as below * symptomatic treatment. * augmentin for 5 days Review of Systems - Review of Systems ENT: negative: Ear Pain, Ear Discharge, Nose Pain, Nose Discharge, Nose Congestion, Mouth Pain, Mouth Swelling, Throat Pain, Throat Swelling, Other Respiratory: negative: Cough, Dry, Shortness of Breath, Hemoptysis, SOB with Excertion, Pleuritic Pain, Sputum, Wheezing Cardiovascular: negative: chest pain, palpitations, orthopnea, paroxysmal nocturnal dyspnea, edema, light headedness, other Gastrointestinal: negative: Nausea, Vomiting, Abdominal Pain, Diarrhea, Constipation, Melena, Hematochezia, Other Genitourinary: negative: Dysuria, Frequency, Incontinence, Hematuria, Retention , Other Musculoskeletal: negative: Neck Pain, Shoulder Pain, Arm Pain, Back Pain, Hand Pain, Leg Pain, Foot Pain, Other Skin: negative: Rash, Lesions, Christ, Bruising, Other - Medications/Allergies Allergies/Adverse Reactions: Allergies Allergy/AdvReac Type Severity Reaction Status Date / Time Sulfa (Sulfonamide Allergy Intermediate Rash Verified 04/06/17 19:35 Antibiotics) Medications: Current Medications Acetaminophen (Tylenol Elixir) 650 mg PO Q6H PRN PRN Reason: Fever > 101 or Mild Pain Last Admin: 12/27/17 09:51 Dose: 650 mg Acetaminophen (Tylenol) 650 mg [place] Q6H PRN PRN Reason: Fever > 101 or Mild Pain Albuterol/Ipratropium (Duoneb) 3 ml NEB Q6H PRN PRN Reason: SOB &/or Wheezing Amoxicillin/Clavulanate Potassium (Augmentin) 875 mg PO Q12HR [facility] Stop: 01/01/18 21:01 Last Admin: 12/28/17 08:02 Dose: 875 mg Enoxaparin Sodium (Lovenox) 40 mg SC 0900 [facility] Last Admin: 12/28/17 08:02 Dose: 40 mg Discontinue Previous Narcotic Pain Medications And Benzodiazepines 1 each FS .ONE [facility] Stop: 01/24/18 22:36 Ondansetron HCl (Zofran Odt) 4 mg PO Q6H PRN PRN Reason: Nausea/Vomiting Ondansetron HCl (Zofran) 4 mg IVP Q6H PRN PRN Reason: Nausea/Vomiting Sodium Chloride (Flush - Normal Saline) 10 ml IVF Q12HR [facility] Last Admin: 12/28/17 08:07 Dose: Not Given Sodium Chloride (Flush - Normal Saline) 10 ml IVF PRN PRN PRN Reason: Saline Flush Thiamine HCl (Thiamine) 100 mg PO DAILY [facility] Last Admin: 12/28/17 08:03 Dose: 100 mg
--- NOTE | 2017-12-28 10:52 | DIS ---
DATE OF ADMISSION: 12/25/2017 DATE OF DISCHARGE: 12/28/2017 PRIMARY CARE PHYSICIAN: [facility] call admission. DISCHARGE DISPOSITION: Inpatient psych facility. PRIMARY DISCHARGE DIAGNOSES: Intentional drug overdose, suicidal attempt, status post respiratory fa ilure due to over sedation, hypophosphatemia, dehydration. SECONDARY DISCHARGE DIAGNOSES: Alcohol abuse, anxiety and depression, history of suicidal attempt, c hronic kidney disease stage 2. PRIMARY PROCEDURE/OPERATION: Endotracheal intubation and mechanical ventilatory support. RADIOLOGICAL INVESTIGATION: Chest x-ray showed no acute process. CT cervical spine and CT brain nor mal. SIGNIFICANT LABORATORY DATA: WBC 9.1, hemoglobin 12.4, platelet 213. Sodium 137, potassium 3.6, BUN 6, creatinine 0.87. Phosphorus 2.0. LFT normal. Cardiac enzymes negative. Urinalysis unremarkabl e. Urine drug screen showed tricyclics and benzodiazepines. Alcohol level 126. Blood culture negat jasvir. DISCHARGE MEDICATIONS: Augmentin 875 mg twice daily for 5 days, Prozac 40 mg daily, vitamin 1 tablet daily, thiamine 100 mg p.o. daily. CONTRAINDICATIONS: None. CODE STATUS: FULL CODE. INPATIENT CONSULTANTS: Dr. Rosario was managing ventilator. [facility] was consulted. TEST RESULTS PENDING ON DISCHARGE: None. ALLERGIES: SULFA DRUGS. DISCHARGE PLAN: Post hospital, the patient is planned for discharge to inpatient psych facility for her psychiatric care. HOSPITAL COURSE: A 37-year-old female who has underlying history of anxiety and depression as well a s history of previous suicidal attempt required psych treatment. This time she took several sedative pills, psychiatric medications for herself as well as for her as he also took some alcohol. She was found unresponsive by the patient's and paramedics were called. The patient was so somnolent that is why she required intubation for airway protection. The patient was admitted to CCU . When patient woke up at that time, we discontinued ventilatory support and patient was observed an other 24 hours. Now patient is back to her normal level. She is more alert. At that point, we cons ulted [facility] for psych treatment. This patient and her agreed to send her to [facility] for longer p sychiatric treatment. Once we have arrangement done, then this patient will be discharged to inpatient psychiatric facility . The patient is seen and examined at bedside today. Please see my progress note from today for fur ther detail.
[2017-12-28 11:19] VITALS: BP 116/79; TEMP 98.6
[2017-12-28 14:07] VITALS: BMI 25.8
== END 2017-12-28 14:47 | disposition home or self-care (01) | DRG 917 ==
LOC: ERS 19:39 → CCU 22:05 → T4-A 12-27 20:19 → SURG A 12-28 09:19 → T4-A 12-28 09:19
PROVIDERS: ADMIT Internal Medicine; ATTEND Internal Medicine
PROC: 0BH17EZ Insertion of Endotracheal Airway into Trachea, Via Natural or Artificial Opening (ICD-10-PCS; principal; 2017-12-25)
PROC: 5A1945Z Respiratory Ventilation, 24-96 Consecutive Hours (ICD-10-PCS; 2017-12-25)
DX: T43.592A Poisoning by other antipsychotics and neuroleptics, intentional self-harm, initial encounter (principal); J96.01 Acute respiratory failure with hypoxia; G93.41 Metabolic encephalopathy; T43.222A Poisoning by selective serotonin reuptake inhibitors, intentional self-harm, initial encounter; T42.6X2A Poisoning by other antiepileptic and sedative-hypnotic drugs, intentional self-harm, initial encounter; F10.20 Alcohol dependence, uncomplicated; F32.9 Major depressive disorder, single episode, unspecified; N18.2 Chronic kidney disease, stage 2 (mild); E86.0 Dehydration
CPT/HCPCS: 36415; 51702; 70450; 71045; 72125; 80048; 80053; 80306; 80307; 81003; 81015; 81025; 82553; 82805; 83735; 84100; 84484; 85025; 87040; 93005; 94002; 94003; 96365; 96366; J1650; J2704; J3411; J7050; S0028

== ENCOUNTER 2018-08-02 20:16 | Inpatient (IN) | payer OTHER, SELFPAY ==
[2018-08-02] MEDS ORDERED: Lorazepam 2 MG/ML VIAL ONE (20:48)
[2018-08-02 20:49] LABS: #Basophils 0.1 thou/uL (0.0-0.2); #Eosinphils 0.1 thou/uL (0.0-0.7); #Lymphocytes 3.3 thou/uL (1.20-3.40); #Monocytes 1.1 thou/uL (0.11-0.59); #Neutrophils 5.1 thou/uL (1.40-6.50); %Basophils 0.7 % (0.0-1.0); %Eosinophils 0.6 % (0.0-10.0); %Lymphocytes 34.2 % (21.0-51.0); %Monocytes 11.2 % (0.0-10.0); %Neutrophils 53.3 % (42.0-75.0); Hemoglobin 11.9 g/dL (12.0-16.0); Mean Corpuscular Hemoglobin 33.2 pg (27.0-31.0); Mean Corpuscular Volume 94.9 fL (78.0-98.0); Mean Platelet Volume 8.9 fL (7.4-10.4); Platelet Count 129 thou/uL (130-400); RBC Distribution Width 14.7 % (11.5-14.5); Red Blood Cell (RBC) Count 3.59 mill/uL (4.20-5.40); White Blood Cell (WBC) Count 9.5 thou/uL (4.8-10.8)
--- NOTE | 2018-08-02 20:56 | CT ---
EXAM: CT brain without contrast HISTORY: Seizure at home COMPARISON: 12/25/2017 TECHNIQUE: Multiple contiguous axial images were obtained and a CT of the brain without contrast. FINDINGS: The brain is normal in morphology and attenuation without focal lesions or confluent areas of infarction. There is no evidence of hydrocephalus, intracranial hemorrhage, or extra-axial fluid collection. The calvarium and overlying soft tissues are unremarkable. Mucosal thickening is seen in the right ma xillary sinus. The other visualized paranasal sinuses and mastoid air cells are well aerated. IMPRESSION: No evidence of acute intracranial abnormality
[2018-08-02 21:08] LABS: BHCG - Serum Negative (NEGATIVE); Pregs Control Background? CLEAR/WHITE (CLR/WHITE); Pregs Control Bar Appear? YES (CONTROL BAR)
[2018-08-02 21:11] LABS: Acetaminophen Less than 6.0 mcg/mL (10.0-30.0); Alcohol Less than 10 mg/dL (Less than 10); Salicylate Less than 8.0 mg/dL (15.0-30.0)
[2018-08-02 21:12] LABS: ALT (SGPT) 51 U/L (8-55); AST (SGOT) 75 U/L (5-34); Albumin 3.9 g/dL (3.5-5.0); Alkaline Phosphatase 97 U/L (40-150); Anion Gap 20 mmol/L (10-20); BUN (Urea Nitrogen) 17 mg/dL (7.0-18.7); Bilirubin, Total 1.2 mg/dL (0.2-1.2); Calc. Creatinine Clearance 0 mL/min (70-130); Calcium 8.5 mg/dL (7.8-10.44); Carbon Dioxide 23 mmol/L (22-29); Chloride 93 mmol/L (98-107); Estimated GFR-MDRD 32; Globulin 2.8 g/dL (2.4-3.5); Glucose 88 mg/dL (70-105); Protein, Total 6.7 g/dL (6.0-8.3); Sodium 134 mmol/L (136-145)
[2018-08-02 21:15] LABS: Potassium 2.1 mmol/L (3.5-5.1)
[2018-08-02] MEDS ORDERED: Potassium Chloride 40 MEQ in Sodium Chloride 0.9% 250 ML 250 ML IVPB SCH (21:30)
--- NOTE | 2018-08-02 23:12 | HP ---
PRIMARY CARE PHYSICIAN: [facility] Call admission. REASON FOR ADMISSION: Seizure, hypokalemia. HISTORY OF PRESENT ILLNESS: A 38-year-old female, who has underlying anxiety and depression, who has previous history of alcoholism. The patient was not drinking alcohol for almost 2 weeks. The patient reports that even before she was claiming that she was not super alcoholic, even her also reports that she is not super alcoholic. 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 The patient last night had generalized tonic-clonic seizure which was unwitnessed because the patient's was at work and the patient was at home alone. The patient was more jittery this morning, she was shaking. She was having involuntary movement of head. She was not able to walk steadily. She was not able to think properly and she was jittery. The patient was resting in couch and she had generalized tonic-clonic seizure again today and the patient was having associated frothing from mouth and tongue bite and that is why the patient's called 911 and the patient was brought to emergency room for evaluation. The patient did not have any fall. She did not have any injury. She did not have any focal motor deficit, but the patient was not able to walk steadily as she was shaking all over and the patient was apprehensive. REVIEW OF SYSTEMS: CONSTITUTIONAL: Negative for weight loss or gain, ability to conduct usual activities. SKIN: Negative for rash, itching. EYES: Negative for double vision, pain. ENT/MOUTH: Negative for nose bleeding, neck stiffness, pain, tenderness. CARDIOVASCULAR: Negative for palpitations, dyspnea on exertion, orthopnea. RESPIRATORY: Negative for shortness of breath, wheezing, cough, hemoptysis, fever or night sweats. GASTROINTESTINAL: Negative for poor appetite, abdominal pain, heartburn, nausea, vomiting, constipation, or diarrhea. GENITOURINARY: Negative for urgency, frequency, dysuria, nocturia. MUSCULOSKELETAL: Negative for pain, swelling. NEUROLOGIC/PSYCHIATRIC: Negative for anxiety, depression. ALLERGY/IMMUNOLOGIC: Negative for skin rash, bleeding tendency. Please see my HPI for pertinent positives and negatives. All other review of systems reviewed and negative except as mentioned in HPI. PAST MEDICAL HISTORY: Reviewed and negative. PAST PSYCHIATRIC HISTORY: Anxiety and depression. The patient has history of drug overdose in the past. PAST SURGICAL HISTORY: Cholecystectomy, childbirth. ALLERGIES: SULFA DRUGS. CURRENT HOME MEDICATIONS: The patient is taking BuSpar 15 mg twice daily, Paxil 20 mg p.o. daily. SOCIAL HISTORY: The patient is . 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 She has history of alcohol abuse in the past, but she is not drinking alcohol for the last 2 weeks. She lives at home with her . FAMILY HISTORY: No family history of seizure disorder. EMERGENCY ROOM COURSE: The patient has received potassium chloride IV fluid and Ativan 1 mg. PHYSICAL EXAMINATION: GENERAL: The patient is apprehensive, appears anxious, fidgety. VITAL SIGNS: Blood pressure 100/70, pulse 100, respiratory rate 26, saturation 98% on room air. Weight 63.5 kg. HEENT: Normocephalic, atraumatic. The patient is moving her head frequently. Eyes, pupils dilated, reactive to light. No nystagmus. ENT; oropharynx within normal limits. Moist mucous membrane. No obvious tongue bite noted. NECK: Supple. No JVD. No thyromegaly. No carotid bruit. No meningeal signs of irritation. LUNGS: Clear to auscultation without any rhonchi or rales. CARDIAC: S1, S2 regular. No murmur. No gallop. No rub. ABDOMEN: Soft, bowel sounds present. Nontender. Nondistended. No organomegaly. No mass. No suprapubic tenderness. BACK: Unremarkable. No CVA tenderness. EXTREMITIES: Upper extremities, passive movement of all joints are normal. Lower extremities, no edema. Good distal pulsation. SKIN: No skin rash. HEMATOLOGICAL: No lymphadenopathy. NEUROLOGIC: The patient is anxious. She moves all 4 limbs. She does have fine tremor. She does have frequent involuntary movement. SIGNIFICANT LABORATORY DATA: EKG showing prolonged QT interval. CT brain based on my review, no acute intracranial process. CBC; WBC 9.5, hemoglobin 11.9, platelet 129. BMP; sodium 134, potassium 2.1, chloride 93, carbon dioxide 23, BUN 17, creatinine 1.77, glucose 88, calcium 8.5. Lactic acid 3.0. LFT; AST 75, ALT 51, alkaline phosphatase 97, albumin 3.9. test negative. Serum drug screen negative. ASSESSMENT AND PLAN: 1. Acute kidney injury. The patient will be given IV fluid NS with KCl and we will repeat BMP tomorrow. 2. Hypokalemia. We will check magnesium and phosphorus and replace accordingly. We will replace potassium with IV fluid and the patient has been given potassium in the emergency room. 3. Lactic acidosis, likely due to dehydration. We will repeat lactic acid tomorrow. 4. Generalized tonic-clonic seizure, type 2, suspecting from medication withdrawal versus alcohol withdrawal. We will consult Neurology. We will obtain MRI brain, EEG and we will check prolactin level. We will observe on stroke floor and do neuro check. We will use Ativan p.r.n. basis. 5. History of alcohol use. We will continue with folic acid, vitamin B12 therapy while in hospital. We will also give her multivitamin with IV fluid. 6. Mild thrombocytopenia. We will repeat CBC tomorrow. 7. Anxiety and depression. We will continue the patient's home medication, Prozac, and BuSpar. 8. Deep venous thrombosis prophylaxis, SCD boots. GI prophylaxis, Pepcid 20 mg p.o. b.i.d. 9. Code status. The patient is full code. The patient's is surrogate decision maker. DISPOSITION PLAN: Based on clinical course, we are expecting the patient's stay in hospital at least 24 to 48 hours. Plan of care discussed with the patient and her at bedside in the emergency room. Job ID: [id number]
[2018-08-02] MEDS ORDERED: Lorazepam 2 MG/ML VIAL SLOW IVP PRN (23:29)
[2018-08-02] MEDS ORDERED: Loperamide HCl 2 MG CAP PO PRN (23:29)
[2018-08-02] MEDS ORDERED: Zolpidem Tartrate 5 MG TAB PO PRN (23:29)
[2018-08-02] MEDS ORDERED: Acetaminophen 325 MG TAB PO PRN (23:29)
[2018-08-02] MEDS ORDERED: Senokot S 8.6-50 MG TAB PO PRN (23:29)
[2018-08-02] MEDS: Lorazepam 2 MG/ML VIAL SLOW IVP PRN (23:53)
[2018-08-03] MEDS ORDERED: Ondansetron PF 4 MG/2 ML Vial IVP PRN (00:05)
[2018-08-03] MEDS ORDERED: Ondansetron ODT 4 MG TAB SL PRN (00:05)
[2018-08-03] MEDS: Cepastat Lozenges 1 LOZ PO PRN ×2 (00:17→03:00)
[2018-08-03] MEDS ORDERED: Multivitamins, Adult 10 ML in Sodium Chloride 0.9% 500 ML IV SCH (00:30)
[2018-08-03 00:34] VITALS: BMI 23.4
[2018-08-03 01:00] LABS: Lactic Acid 0.9 mmol/L (0.5-2.2)
[2018-08-03 05:31] LABS: Lactic Acid 0.6 mmol/L (0.5-2.2)
[2018-08-03 05:33] LABS: #Lymphocytes 1.8 thou/uL (1.20-3.40); #Monocytes 1.3 thou/uL (0.11-0.59); #Neutrophils 8.7 thou/uL (1.40-6.50); %Basophils 0.1 % (0.0-1.0); %Eosinophils 0.3 % (0.0-10.0); %Lymphocytes 15.5 % (21.0-51.0); %Monocytes 11.1 % (0.0-10.0); Hemoglobin 10.8 g/dL (12.0-16.0); Mean Corpuscular HGB CONC 34.8 g/dL (32.0-36.0); Mean Corpuscular Hemoglobin 33.2 pg (27.0-31.0); Mean Corpuscular Volume 95.4 fL (78.0-98.0); Mean Platelet Volume 8.9 fL (7.4-10.4); Platelet Count 120 thou/uL (130-400); RBC Distribution Width 14.8 % (11.5-14.5); Red Blood Cell (RBC) Count 3.27 mill/uL (4.20-5.40); White Blood Cell (WBC) Count 11.9 thou/uL (4.8-10.8)
[2018-08-03 05:39] LABS: ALT (SGPT) 50 U/L (8-55); AST (SGOT) 79 U/L (5-34); Albumin 3.6 g/dL (3.5-5.0); Alkaline Phosphatase 89 U/L (40-150); Anion Gap 13 mmol/L (10-20); BUN (Urea Nitrogen) 16 mg/dL (7.0-18.7); Bilirubin, Total 1.1 mg/dL (0.2-1.2); Calc. Creatinine Clearance 64 mL/min (70-130); Carbon Dioxide 24 mmol/L (22-29); Chloride 102 mmol/L (98-107); Estimated GFR-MDRD 53; Globulin 2.3 g/dL (2.4-3.5); Glucose 76 mg/dL (70-105); Magnesium 1.3 mg/dL (1.6-2.6); Protein, Total 5.9 g/dL (6.0-8.3); Sodium 137 mmol/L (136-145)
[2018-08-03 05:45] LABS: Potassium 2.3 mmol/L (3.5-5.1)
[2018-08-03] MEDS: NS 0.9% w/ 20 MEQ KCL 1,000 ML/1,000 ML BAG IV SCH ×2 (06:09→16:21)
[2018-08-03 06:53] LABS: Amphetamine Detected (NotDetected); Barbiturates Screen Not Detected (NotDetected); Benzodiazepine Screen Detected (NotDetected); Cocaine Metabolite Screen Not Detected (NotDetected); Medtox Control Line Valid? VALID (VALID); Medtox Reader # READER 4; Methadone Not Detected (NotDetected); Methamphetamine Not Detected (NotDetected); Opiate Screen Not Detected (NotDetected); Oxycodone Screen Not Detected (NotDetected); Phencyclidine (PCP) Not Detected (NotDetected); THC/Cannabinoid Screen Not Detected (NotDetected); Tricyclic Screen Not Detected (NotDetected)
[2018-08-03] MEDS ORDERED: Magnesium 2 GM/50 ML 2 GM in Premix Bag 1 BAG IVPB SCH (07:45)
[2018-08-03] MEDS: busPIRone HCl 10 MG TAB PO SCH ×3 (07:49→20:44)
[2018-08-03] MEDS: Famotidine 20 MG TAB PO SCH (07:49)
[2018-08-03] MEDS: Lorazepam 2 MG/ML VIAL SLOW IVP PRN (07:49)
[2018-08-03] MEDS: Potassium Chloride 20 MEQ TAB PO SCH ×4 (07:49→21:15)
[2018-08-03] MEDS: PARoxetine 20 MG TAB PO SCH (07:49)
[2018-08-03] MEDS ORDERED: Diazepam 5 MG TAB PO SCH (09:33)
[2018-08-03] MEDS ORDERED: Lorazepam 2 MG/ML VIAL SLOW IVP PRN (11:06)
--- NOTE | 2018-08-03 14:47 | PDOC.PN ---
- Subjective Encounter Start Date: 08/03/18 Encounter Start Time: 09:45 Subjective: Patient with ASE 14, states she is very anxious about having an MRI -: reports being claustraphobic. Given Diazepam 10 mg PO, still very anxious -: Reports drinking a couple of margaritas a day, sometimes 2 bottles of wine. Denies any history of DTRs or alcohol withdrawal seizures. No n/v. No headaches. - Objective Resuscitation Status - Order Detail: 08/02/18 22:41 Resuscitation Status Routine Resuscitation Status: FULL: Full Resuscitation Vital Signs & Weight: Vital Signs (12 hours) Temp Pulse Resp BP BP Pulse Ox 08/03/18 11:33 98.5 F 94 18 127/87 98 08/03/18 07:36 98.5 F 100 22 H 140/97 H 97 08/03/18 04:00 98.1 F 97 16 139/97 H 99 Weight Admit Weight 136 lb 8 oz Weight 136 lb 8 oz I&O: 08/02/18 08/03/18 08/04/18 06:59 06:59 06:59 Intake Total 600 Balance 600 Result Diagrams: 08/03/18 04:29 08/03/18 04:29 Phys Exam - Physical Examination Patient visibly agitated and unable to sit still HEENT: PERRLA Tongue notable for white coating, patient states very sore painful to touch No bleeding, notable stomatitis Neck: supple, full ROM Respiratory: no wheezing, no rales, no rhonchi, clear to auscultation bilateral Cardiovascular: RRR, no significant murmur, no rub Gastrointestinal: soft, non-tender, no distention, positive bowel sounds Musculoskeletal: no edema, pulses present Neurological: normal sensation, moves all 4 limbs Psychiatric: A&O x 3 Deviation from normal: patient unable to maintain eye contact, very restless Skin: no rash Dx/Plan (1) Seizure due to alcohol withdrawal Code(s): F10.239 - ALCOHOL DEPENDENCE WITH WITHDRAWAL, UNSPECIFIED; R56.9 - UNSPECIFIED CONVULSIONS Status: Acute Plan: New onset seizures, due to ETOH withdrawal. CT brain negative. MRI brain requested, will be held for now. Given Diazepam 10 mg PO, still extremely agitated/restless. Will give Ativan 1 mg IV x 1 now, will increased PRN dose of ativan from 0.5 mg to 1 mg Q4H. Further recommendations as per Neuro. (2) Electrolyte abnormality Code(s): E87.8 - OTH DISORDERS OF ELECTROLYTE AND FLUID BALANCE, NEC Status: Acute Plan: Potassium and magnesium to be replaced. Recheck. (3) Alcohol abuse Code(s): F10.10 - ALCOHOL ABUSE, UNCOMPLICATED Status: Chronic - Plan cont current plan of care Per Dr. Dupont, change to inpatient status * .
[2018-08-03] MEDS ORDERED: Haloperidol Lactate 5 MG/ML VIAL ONE (15:57)
--- NOTE | 2018-08-03 16:13 | PDOC.PN ---
- Subjective Encounter Start Date: 08/03/18 Encounter Start Time: 16:11 Subjective: patient tried to sneak out. when tested she was hallucinating. when i -: arrived, got her to bed, she was snarling at me. got her calmed a little, -: lying down, ordered 5 mg haldol IM, soft restrains and transfer to IMCU - Objective Resuscitation Status - Order Detail: 08/02/18 22:41 Resuscitation Status Routine Resuscitation Status: FULL: Full Resuscitation MAR Reviewed: Yes Vital Signs & Weight: Vital Signs (12 hours) Temp Pulse Resp BP Pulse Ox 08/03/18 11:33 98.5 F 94 18 127/87 98 08/03/18 07:36 98.5 F 100 22 H 140/97 H 97 Weight Admit Weight 136 lb 8 oz Weight 136 lb 8 oz I&O: 08/02/18 08/03/18 08/04/18 06:59 06:59 06:59 Intake Total 600 Balance 600 Result Diagrams: 08/03/18 04:29 08/03/18 04:29 Phys Exam - Physical Examination Neck: no JVD Respiratory: clear to auscultation bilateral Cardiovascular: RRR, no significant murmur Gastrointestinal: soft, positive bowel sounds Musculoskeletal: no edema Dx/Plan (1) Encephalopathy acute Code(s): G93.40 - ENCEPHALOPATHY, UNSPECIFIED Status: Acute (2) Seizure due to alcohol withdrawal Code(s): F10.239 - ALCOHOL DEPENDENCE WITH WITHDRAWAL, UNSPECIFIED; R56.9 - UNSPECIFIED CONVULSIONS Status: Acute Qualifiers: Complication of substance-induced condition: with delirium Qualified Code(s ): F10.231 - Alcohol dependence with withdrawal delirium (3) Alcohol abuse Code(s): F10.10 - ALCOHOL ABUSE, UNCOMPLICATED Status: Chronic (4) Anxiety and depression Code(s): F41.9 - ANXIETY DISORDER, UNSPECIFIED; F32.9 - MAJOR DEPRESSIVE DISORDER, SINGLE EPISODE, UNSPECIFIED Status: Chronic - Plan IMCU -: haldol prn -: iv fluids -: soft restraints * .
[2018-08-03] MEDS ORDERED: Haloperidol Lactate 5 MG/ML VIAL SLOW IVP SCH (16:15)
[2018-08-03] MEDS ORDERED: Haloperidol Lactate 5 MG/ML VIAL IM SCH (17:00)
[2018-08-03] MEDS: D5 1/2 NS w/40 mEq KCL 1,000 ML IV SCH (17:06)
[2018-08-03 17:29] LABS: Magnesium 1.8 mg/dL (1.6-2.6)
[2018-08-03 18:10] LABS: Potassium 2.4 mmol/L (3.5-5.1)
[2018-08-03] MEDS ORDERED: Haloperidol Lactate 5 MG/ML VIAL SLOW IVP PRN (20:00)
[2018-08-03] MEDS ORDERED: Potassium Chloride 20 MEQ/100 ML PREMIX BAG IVPB SCH (21:30)
--- NOTE | 2018-08-03 22:07 | CON ---
DATE OF CONSULTATION: 08/03/2018 CONSULTING PHYSICIAN: [facility]. IMPRESSION: 1. Possible alcohol withdrawal seizure. 2. Restless behavior. PLAN: 1. No anticonvulsants are needed. 2. Can use benzodiazepine to try to calm her behaviors. HISTORY OF PRESENT ILLNESS: Ms. Cai is a 38-year-old woman who reports having history of alcohol abuse. She has been on and off alcohol now for some years by her report. She apparently had a recent upper respiratory infection. She had a seizure at home and was transferred here. She had a CT of the brain that was unremarkable. Vital signs were stable and she is afebrile. Laboratory study showed some hypokalemia and a positive drug screen for amphetamine. She attributes this to taking Sudafed. She denies any illicit drug use history in the past. She sees a psychiatrist for management of depression and anxiety. She reports that this restless behavior is common with her when she is upset. PAST HISTORY: Anxiety and depression. SOCIAL HISTORY: Positive for alcohol. ALLERGIES: SULFA. MEDICATION LIST: Reviewed. FAMILY HISTORY: Noncontributory. REVIEW OF SYSTEMS: Ten system review of systems is otherwise negative. PHYSICAL EXAMINATION: GENERAL: She is a well-nourished middle-aged woman, tied down in all 4 restraints. VITAL SIGNS: Blood pressure 126/82, pulse 78, respirations 18, and temperature 98.1. HEENT: Pupils are equal and reactive. Conjunctivae clear. Oropharynx clear. SKIN: There are some scattered ecchymoses over extremities. No cyanosis is present. NECK: Supple. NEUROLOGIC: She was awake and conversant. She answers questions reasonably well. Her speech is fluent and clear. There is no facial asymmetry present. She had good strength in all 4 extremities. Sensation is intact to touch. Gait was not tested. She is constantly restless and pulling at the restraints. LABORATORY DATA: EEG was attempted, but due to her uncooperative state, it was un-interpretable. SUMMARY: This is a young woman with apparent withdrawal seizure. She does not need any anticonvulsants for it. Her behavior is not very well managed at this point, might consider increasing the benzodiazepines. Job ID: [id number]
[2018-08-04] MEDS: D5 1/2 NS w/40 mEq KCL 1,000 ML IV SCH ×3 (01:12→17:30)
[2018-08-04] MEDS: Aluminum & Magnesium Hydroxide 60 ML, diphenhydrAMINE 150 MG, Lidocaine 2% Viscous Solu... SSW PRN ×3 (11:11→22:35)
[2018-08-04] MEDS: busPIRone HCl 10 MG TAB PO SCH ×2 (11:12→21:25)
[2018-08-04] MEDS: PARoxetine 20 MG TAB PO SCH (11:13)
[2018-08-04] MEDS: Famotidine 20 MG TAB PO SCH (11:13)
--- NOTE | 2018-08-04 12:21 | PDOC.PN ---
- Subjective Encounter Start Date: 08/04/18 Encounter Start Time: 07:00 -: old records requested/rev Patient seen and examined. No new complaints. No overnight events sitter bedside, no restraint, feels calm, no restlessness - Objective Resuscitation Status - Order Detail: 08/02/18 22:41 Resuscitation Status Routine Resuscitation Status: FULL: Full Resuscitation MAR Reviewed: Yes Vital Signs & Weight: Vital Signs (12 hours) Temp 08/04/18 11:41 97.6 F 08/04/18 07:27 97.6 F 08/04/18 04:00 98.4 F Weight Admit Weight 136 lb 8 oz Weight 134 lb Most Recent Monitor Data Heart Rate from ECG 73 NIBP 132/93 NIBP BP-Mean 106 Respiration from ECG 22 I&O: 08/03/18 08/04/18 08/05/18 06:59 06:59 06:59 Intake Total 600 1257 Balance 600 1257 Result Diagrams: 08/03/18 04:29 08/03/18 16:55 EKG Reviewed by me: Yes Phys Exam - Physical Examination Constitutional: NAD HEENT: PERRLA, moist MMs, sclera anicteric Neck: no JVD, supple Respiratory: no wheezing, no rales, no rhonchi Cardiovascular: RRR, no significant murmur, no rub Gastrointestinal: soft, non-tender, no distention, positive bowel sounds Musculoskeletal: no edema, pulses present Neurological: non-focal, normal sensation Lymphatic: no nodes Psychiatric: normal affect, A&O x 3 Skin: no rash, normal turgor Dx/Plan (1) Electrolyte abnormality Code(s): E87.8 - OTH DISORDERS OF ELECTROLYTE AND FLUID BALANCE, NEC Status: Acute (2) Encephalopathy acute Code(s): G93.40 - ENCEPHALOPATHY, UNSPECIFIED Status: Acute (3) Seizure due to alcohol withdrawal Code(s): F10.239 - ALCOHOL DEPENDENCE WITH WITHDRAWAL, UNSPECIFIED; R56.9 - UNSPECIFIED CONVULSIONS Status: Acute Qualifiers: Complication of substance-induced condition: with delirium Qualified Code(s ): F10.231 - Alcohol dependence with withdrawal delirium (4) Alcohol abuse Code(s): F10.10 - ALCOHOL ABUSE, UNCOMPLICATED Status: Chronic (5) Anxiety and depression Code(s): F41.9 - ANXIETY DISORDER, UNSPECIFIED; F32.9 - MAJOR DEPRESSIVE DISORDER, SINGLE EPISODE, UNSPECIFIED Status: Chronic (6) CKD (chronic kidney disease) stage 2, GFR 60-89 ml/min Code(s): N18.2 - CHRONIC KIDNEY DISEASE, STAGE 2 (MILD) Status: Chronic - Plan cont current plan of care, plan discussed w/ family * transfer to medical * MRI if possible * discussed with * ambulate with PT * MR evaluation * repeat labs tomorrow * replace potassium. Review of Systems - Review of Systems ENT: negative: Ear Pain, Ear Discharge, Nose Pain, Nose Discharge, Nose Congestion, Mouth Pain, Mouth Swelling, Throat Pain, Throat Swelling, Other Respiratory: negative: Cough, Dry, Shortness of Breath, Hemoptysis, SOB with Excertion, Pleuritic Pain, Sputum, Wheezing Cardiovascular: negative: chest pain, palpitations, orthopnea, paroxysmal nocturnal dyspnea, edema, light headedness, other Gastrointestinal: negative: Nausea, Vomiting, Abdominal Pain, Diarrhea, Constipation, Melena, Hematochezia, Other Genitourinary: negative: Dysuria, Frequency, Incontinence, Hematuria, Retention , Other Musculoskeletal: negative: Neck Pain, Shoulder Pain, Arm Pain, Back Pain, Hand Pain, Leg Pain, Foot Pain, Other Skin: negative: Rash, Lesions, Christ, Bruising, Other Neurological: negative: Weakness, Numbness, Incoordination, Change in Speech, Confusion, Seizures, Other - Medications/Allergies Allergies/Adverse Reactions: Allergies Allergy/AdvReac Type Severity Reaction Status Date / Time Sulfa (Sulfonamide Allergy Intermediate Rash Verified 04/06/17 19:35 Antibiotics) promethazine [From Phenergan] Allergy Verified 08/03/18 00:25 Medications: Current Medications Acetaminophen (Tylenol) 650 mg PO Q4H PRN PRN Reason: Headache/Fever/Mild Pain (1-3) Buspirone HCl (Buspar) 15 mg PO BID [facility] Last Admin: 08/04/18 11:12 Dose: 15 mg Al Hydroxide/Mg Hydroxide 60 ml/ Diphenhydramine HCl 150 mg / Lidocaine HCl 60 ml/Nystatin 6,000,000 units 0 ml SSW PRN PRN PRN Reason: Mouth Irritation Last Admin: 08/04/18 11:11 Dose: 10 ml Famotidine (Pepcid) 20 mg PO DAILY [facility] Last Admin: 08/04/18 11:13 Dose: 20 mg Haloperidol Lactate (Haldol) 5 mg SLOW IVP Q4H PRN PRN Reason: Agitation Last Admin: 08/04/18 01:12 Dose: 5 mg Potassium Chloride/Dextrose/Sod Cl (D5 1/2 Ns W/40 Meq Kcl) 1,000 mls @ 125 mls /hr IV .Q8H [facility] Last Admin: 08/04/18 09:30 Dose: 1,000 mls Loperamide HCl (Imodium) 2 mg PO PRN PRN PRN Reason: Diarrhea/Loose Stools Lorazepam (Ativan) 2 mg SLOW IVP Q15MIN PRN PRN Reason: Seizures Lorazepam (Ativan) 1 mg SLOW IVP Q4H PRN PRN Reason: Anxiety/Agitation Paroxetine HCl (Paxil) 20 mg PO DAILY [facility] Last Admin: 08/04/18 11:13 Dose: 20 mg Potassium Chloride (K-Dur) 40 meq PO ONE [facility] Senna/Docusate Sodium (Senokot S) 2 tab PO BID PRN PRN Reason: Constipation Sodium Chloride (Flush - Normal Saline) 10 ml IVF Q12HR [facility] Last Admin: 08/04/18 11:13 Dose: Not Given Sodium Chloride (Flush - Normal Saline) 10 ml IVF PRN PRN PRN Reason: Saline Flush Throat Lozenges (Cepastat Lozenges) 1 reena PO Q2H PRN PRN Reason: Sore Throat Last Admin: 08/03/18 03:00 Dose: 1 reena Zolpidem Tartrate (Ambien) 5 mg PO HSPRN PRN PRN Reason: Insomnia
[2018-08-04] MEDS ORDERED: Potassium Chloride 20 MEQ TAB PO SCH (12:30)
[2018-08-05] MEDS: D5 1/2 NS w/40 mEq KCL 1,000 ML IV SCH ×2 (01:16→08:53)
[2018-08-05 06:37] LABS: Anion Gap 9 mmol/L (10-20); BUN (Urea Nitrogen) 4 mg/dL (7.0-18.7); Calc. Creatinine Clearance 107 mL/min (70-130); Calcium 8.4 mg/dL (7.8-10.44); Carbon Dioxide 19 mmol/L (22-29); Chloride 112 mmol/L (98-107); Estimated GFR-MDRD Greater than 90; Glucose 120 mg/dL (70-105); Potassium 4.8 mmol/L (3.5-5.1); Sodium 135 mmol/L (136-145)
[2018-08-05] MEDS: Famotidine 20 MG TAB PO SCH (08:51)
[2018-08-05] MEDS: PARoxetine 20 MG TAB PO SCH (08:52)
[2018-08-05] MEDS: busPIRone HCl 10 MG TAB PO SCH (08:52)
[2018-08-05] MEDS: Aluminum & Magnesium Hydroxide 60 ML, diphenhydrAMINE 150 MG, Lidocaine 2% Viscous Solu... SSW PRN (08:58)
[2018-08-05 11:08] VITALS: BP 135/98; TEMP 98.1
--- NOTE | 2018-08-05 12:41 | DIS ---
DATE OF ADMISSION: 08/03/2018 DATE OF DISCHARGE: 08/05/2018 PRIMARY CARE PHYSICIAN: [facility] Call Admission. DISCHARGE DISPOSITION: Home. PRIMARY DISCHARGE DIAGNOSES: 1. Acute encephalopathy, resolved. 2. Seizure due to alcohol withdrawal. 3. Anxiety with restlessness behavior. 4. Electrolyte abnormality. SECONDARY DISCHARGE DIAGNOSES: 1. Alcohol abuse. 2. Anxiety and depression. 3. Chronic kidney disease stage 2. PRIMARY PROCEDURE/OPERATION: None. RADIOLOGICAL INVESTIGATION: CT brain, negative. SIGNIFICANT LABORATORY DATA: Hemoglobin 10.8, creatinine 0.68, and potassium 4.8. Urine drug screen positive for amphetamine and benzodiazepine. DISCHARGE MEDICATIONS: 1. BuSpar 15 mg p.o. b.i.d. 2. Paxil 20 mg daily. 3. Xanax 0.5 mg b.i.d. p.r.n. 4. Vitamin B12 1000 mcg p.o. daily. 5. Folic acid 1 mg daily. 6. Lidocaine viscous 15 mL SSW p.r.n. as directed. 7. Nystatin 60 mL SSW p.r.n. 8. Vitamin B complex one tablet daily. CONTRAINDICATION: None. CODE STATUS: Full code. INPATIENT PARATRANSIT DRIVER: Dr. Bejarano for Neurology was consulted while in hospital. ALLERGIES: SULFA DRUGS . DISCHARGE PLAN: Posthospital, the patient will follow up with primary care physician, with primary psychiatrist, and Neurology if needed. HOSPITAL COURSE: A 38-year-old female, who was admitted by me. Please see my HPI for further details. On admission, the patient was very restless. She was having jitteriness and tremor. She had seizure at home. She was brought to emergency room. We did CT brain which was negative. We admitted her to stroke floor for neuro observation. We tried to do MRI EEG, but the patient was not cooperative and the patient refused to go for that. Neurology was consulted and they were thinking that this patient's seizure most likely related with alcohol withdrawal. The patient was treated aggressively for her anxiety and her symptoms have significantly improved. We also replaced all abnormal electrolytes while in hospital including hypokalemia and hypomagnesemia, which was improved by the time of discharge. The patient had stomatitis and that is why we treated her symptomatically with nystatin, lidocaine, and the patient was given vitamins. I have seen and examined the patient at bedside, today, the patient started ambulating by herself. She is completely asymptomatic. REVIEW OF SYSTEMS: All review of systems is reviewed and negative. PHYSICAL EXAMINATION: VITAL SIGNS: Currently temperature 98.1, pulse 100, respiratory rate 16, saturation 97%, and blood pressure 135/98. Weight 134 pounds. GENERAL: The patient is currently alert and awake, in no obvious acute distress. HEENT: Head; normocephalic and atraumatic. Eyes; pupils are round and reactive to light. Extraocular muscle intact. ENT; oropharynx within normal limits. LUNGS: Clear without any rhonchi. CARDIAC: S1 and S2. Regular without any murmur. ABDOMEN: Soft and benign. EXTREMITIES: No edema. NEUROLOGIC: Nonfocal examination. The patient is medically stable for discharge today. Job ID: [id number]
--- NOTE | 2018-08-05 16:52 | EKG ---
Test Reason : ER Blood Pressure : / mmHG Vent. Rate : 093 BPM Atrial Rate : 093 BPM P-R Int : 126 ms QRS Dur : 078 ms QT Int : 418 ms P-R-T Axes : 058 019 018 degrees QTc Int : 519 ms Normal sinus rhythm Prolonged QT Abnormal ECG Confirmed by FORREST POWELL, DEBORAH Castillo ([id number]), video news editor LOUISA MARKS ([id number]) on 08/05/2018 4:52:12 PM Referred By: Confirmed By:DEBORAH CLAYTON MD
== END 2018-08-05 11:28 | disposition home or self-care (01) | DRG 897 ==
LOC: ERS 20:16 → 2SE 21:42 → OBSVTOIN 08-03 15:15 → IMCU/EMU 08-03 18:34 → T4-B 08-04 20:30
PROVIDERS: ADMIT Internal Medicine; ATTEND Internal Medicine
DX: F10.231 Alcohol dependence with withdrawal delirium (principal); N17.9 Acute kidney failure, unspecified; E87.2 Acidosis; G93.40 Encephalopathy, unspecified; R56.9 Unspecified convulsions; F41.9 Anxiety disorder, unspecified; F32.9 Major depressive disorder, single episode, unspecified; E87.6 Hypokalemia; E86.0 Dehydration; D69.6 Thrombocytopenia, unspecified; E87.8 Other disorders of electrolyte and fluid balance, not elsewhere classified; N18.2 Chronic kidney disease, stage 2 (mild); R45.1 Restlessness and agitation; E83.42 Hypomagnesemia; K12.1 Other forms of stomatitis; Z90.49 Acquired absence of other specified parts of digestive tract; Z88.2 Allergy status to sulfonamides
CPT/HCPCS: 36415; 70450; 80048; 80053; 80306; 80307; 83605; 83735; 84146; 84443; 84703; 85025; 93005; 95816; 95819; J1630; J2060; J3475; J3480; J7050; Q0163

== ENCOUNTER 2019-10-24 16:24 | Inpatient (IN) | payer SELFPAY ==
[2019-10-24] MEDS ORDERED: Propofol 1,000 MG/100 ML VIAL IV ONE (17:38)
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
[2019-10-24] MEDS ORDERED: Ventilator Sedation Protocol 1 EACH FS SCH (18:26)
[2019-10-24] MEDS ORDERED: DISCONTINUE PREVIOUS NARCOTIC PAIN MEDICATIONS AND BENZODIAZEPINES FS SCH (18:29)
[2019-10-24] MEDS ORDERED: Lorazepam 2 MG/ML VIAL SLOW IVP PRN (18:29)
[2019-10-24] MEDS ORDERED: Propofol BOLUS 1,000 MG/100 ML VIAL IV PRN (18:29)
[2019-10-24] MEDS ORDERED: Morphine 2 MG/ML VIAL SLOW IVP PRN (18:29)
[2019-10-24] MEDS ORDERED: fentaNYL Citrate/PF 2,000 MCG in Sodium Chloride 0.9% 60 ML IV SCH (18:29)
[2019-10-24] MEDS ORDERED: Fentanyl BOLUS 250 ML IVPB PRN (18:29)
[2019-10-24] MEDS ORDERED: Acetaminophen 325 MG TAB PO PRN (19:17)
[2019-10-24] MEDS ORDERED: Acetaminophen 650 MG Suppository PR PRN (19:17)
[2019-10-24] MEDS ORDERED: Ondansetron ODT 4 MG TAB PO PRN (19:17)
[2019-10-24] MEDS ORDERED: Enoxaparin Sodium 40 MG/0.4 ML SYRINGE SC SCH (19:30)
[2019-10-24] MEDS: Famotidine/PF 20 mg/2ml Vial SLOW IVP SCH (20:24)
--- NOTE | 2019-10-24 20:36 | CON ---
DATE OF CONSULTATION: 10/24/2019 HISTORY OF PRESENT ILLNESS: Ms. Cai is a 39-year-old female, who is intubated. She was transferred here from [facility]. She had blood alcohol of 310. Her drug screen was negative. There were multiple pill bottles reportedly around her. Actually, when she rolled into our ICU, she was sitting bolt upright in the bed and had to be sedated. PAST MEDICAL HISTORY: Remarkable for; 1. History of alcohol intake, it has been heavy in the past based on a note from 2019. 2. History of anxiety. 3. History of depression. 4. History of drug overdose in the past. 5. History of cholecystectomy. It is unclear what drug she had at home. Sulfa allergy noted. 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 I am told by the nursing staff that her significant other relapsed with alcohol and so she started drinking. She made a very superficial attempt of slashing her wrist, that barely broke the skin. PHYSICAL EXAMINATION: VITAL SIGNS: Blood pressure is 96/77, heart rate is 94, oximetry is 100%. HEENT: Sclerae are anicteric. NECK: Supple. She is intubated. LUNGS: Remarkable for equal breath sounds. HEART: Regular rhythm. ABDOMEN: Soft. EXTREMITIES: Without asymmetry. NEURO: Not assessable. LABORATORY DATA: White count 19.6, hemoglobin 14.1, platelets 245. Coags are normal. PH 7.28, pCO2 of 40, pO2 of 450 on the chem 7, chloride 103, bicarb 23, BUN 10, creatinine 0.7. IMPRESSION AND PLAN: I suspect her respiratory depression is secondary to alcohol intoxication more than a drug overdose, given her combative behavior when she arrived. She will be kept sedated until tomorrow morning and then hopefully we can extubate her in the morning. She will be admitted to Family Practice Resident Service. Critical care time 30 min. Job ID: [id number] [id number]
[2019-10-24] MEDS: Propofol 1,000 MG/100 ML VIAL IV PRN (21:35)
[2019-10-24] MEDS: Lactated Ringer's 1,000 ML IV SCH (21:49)
[2019-10-25] MEDS: Propofol 1,000 MG/100 ML VIAL IV PRN (03:05)
[2019-10-25 03:36] LABS: #Basophils 0.1 thou/uL (0.0-0.2); #Eosinphils 0.1 thou/uL (0.0-0.7); #Lymphocytes 5.1 thou/uL (1.20-3.40); #Neutrophils 10.2 thou/uL (1.40-6.50); %Basophils 0.5 % (0.0-1.0); %Eosinophils 0.8 % (0.0-10.0); %Lymphocytes 30.9 % (21.0-51.0); %Monocytes 6.3 % (0.0-10.0); %Neutrophils 61.6 % (42.0-75.0); Mean Corpuscular HGB CONC 34.9 g/dL (32.0-36.0); Mean Corpuscular Volume 88.7 fL (78.0-98.0); Mean Platelet Volume 8.8 fL (7.4-10.4); Platelet Count 203 thou/uL (130-400); White Blood Cell (WBC) Count 16.6 thou/uL (4.8-10.8)
[2019-10-25 04:06] LABS: ALT (SGPT) 31 U/L (8-55); AST (SGOT) 25 U/L (5-34); Albumin 3.5 g/dL (3.5-5.0); Alkaline Phosphatase 63 U/L (40-110); Anion Gap 15 mmol/L (10-20); BUN (Urea Nitrogen) 9 mg/dL (7.0-18.7); Bilirubin, Total 0.5 mg/dL (0.2-1.2); Calc. Creatinine Clearance 111 mL/min (70-130); Calcium 7.8 mg/dL (7.8-10.44); Carbon Dioxide 20 mmol/L (22-29); Chloride 108 mmol/L (98-107); Estimated GFR-MDRD 86; Globulin 2.3 g/dL (2.4-3.5); Glucose 86 mg/dL (70-105); Potassium 3.2 mmol/L (3.5-5.1); Protein, Total 5.8 g/dL (6.0-8.3); Sodium 140 mmol/L (136-145)
--- NOTE | 2019-10-25 06:07 | PDOC.FM ---
- Subjective Subjective: Patient was sedated and intubated during the evaluation, and was minimally responsive to verbal and physical stimuli. No acute overnight events reported by Nursing. - Objective Vital Signs & Weight: Vital Signs (12 hours) Temp Resp Pulse Ox 10/25/19 04:00 99.5 F 16 10/25/19 02:00 16 10/25/19 00:00 99.8 F H 16 10/24/19 22:00 16 10/24/19 20:00 100.0 F H 16 100 10/24/19 19:17 100 10/24/19 18:00 18 Weight Weight 70.2 kg Most Recent Monitor Data Heart Rate from ECG 76 NIBP 137/94 NIBP BP-Mean 108 Respiration from ECG 25 SpO2 99 I&O: 10/23/19 10/24/19 10/25/19 06:59 06:59 06:59 Output Total 337 Balance -337 Result Diagrams: 10/25/19 03:17 10/25/19 03:17 Phys Exam - Physical Examination Constitutional: NAD Neck: supple Respiratory: no wheezing, no rales, no rhonchi, clear to auscultation bilateral On ventilator Cardiovascular: RRR, no significant murmur, no rub Gastrointestinal: soft, non-tender, no distention, positive bowel sounds Musculoskeletal: no edema, pulses present Deviation from normal: Sedated Skin: no rash, normal turgor Deviation from normal: Superficial laceration on left wrist Dx/Plan (1) Encephalopathy acute Code(s): G93.40 - ENCEPHALOPATHY, UNSPECIFIED Status: Acute (2) Alcohol abuse Code(s): F10.10 - ALCOHOL ABUSE, UNCOMPLICATED Status: Chronic (3) Anxiety and depression Code(s): F41.9 - ANXIETY DISORDER, UNSPECIFIED; F32.9 - MAJOR DEPRESSIVE DISORDER, SINGLE EPISODE, UNSPECIFIED Status: Chronic - Plan Plan: Patient is a 39 y/o female with a PMH significant for EtOH Abuse, Anxiety and Depression and multiple Suicide Attempts who presents from an outside facility after being found down following an EtOH binge and drug overdose. #Acute Respiratory Failure and Metabolic Encephalopathy 2/2 severe EtOH Intoxication and Intentional Drug Overdose -Per ED check-out and Resident Night Team notes, patient was found down following a severe EtOH binge with multiple pill bottles scattered around her home -Plasma EtOH: 310 -Urine/Plasma Drug Screen: Negative -Patient's mother reported possible overdose with Citalopram, Trazadone and Diphenhydramine -Resident Night Team reported that Poison Control was contacted by outside facility - recommended close monitoring for QRS prolongation with serial EKGs - will order additional EKG this AM -WBCs: 19.6 > 16.6 - will continue to trend -Trop: < 0.01 -Lipase: 44 -Procal: 0.03 - low suspicion for Aspiration Pneumonia -CPK: 108 -CXR: NAF x2 -UA: WNL -COVID: Pending -ASE Protocol -Lorazepam 2 mg IV PRN -Soft Restraints PRN -Patient was intubated at outside facility due to severe vomiting and inability to protect airway -Pulmonology: Consulted, managing vent setting and will likely plan to extubate this AM - recs appreciated #EtOH Abuse -Per chart review, patient has a Hx of EtOH Abuse, rehab attempts and multiple hospitalizations -Will plan for MHMR consult following improvement of mental status #Suicide Attempt -Per chart review, patient has a Hx of multiple intentional overdoses in the past -Sitter present in room -Mental Health Warrant / Notification of Emergency Longterm issued on 10/23 - will contact Tom SINGH if patient attempts to leave AMA -Will plan for MHMR consult following improvement of mental status #Anxiety -Per chart review, patient has a documented Hx of Anxiety in the past - unsure of current medication regimen -May likely be contributing factor to above -Will plan for MHMR consult following improvement of mental status #Depression -Per chart review, patient has a documented Hx of Depression in the past - unsure of current medication regimen -May likely be contributing factor to above -Will plan for MHMR consult following improvement of mental status #Hypokalemia -K: 3.3 on 10/24 - will replace PCP: CC Code: Full Diet: NPO IVF: LR @ 110 ml/hr Activity: Bed Rest VTE PPx: Lovenox 40 mg SC - MELVINA Score: 4 GI PPx: Famotidine DIspo: Patient is currently medically stable and admitted to the ICU after being intubated at an outside facility following severe EtOH Intoxication and intentional Drug Overdose representing a likely Suicide Attempt. Pulmonology consulted and will likely plan for extubation later this AM - additional recs appreciated. Will follow ASE Protocol and monitor for signs of withdrawal closely. Following extubation and improvement of mental status, will plan for MHMR consult for further evaluation. Expected LOS > 48H. Addendum - Attending - Attending Attestation Date/Time: 10/25/19 0920 I personally evaluated the patient and discussed the management with Dr. Lo. I agree with the History, Examination, Assessment and Plan documented above with any addition or exceptions noted below. Patient extubated and feeling well. No respiratory issues. She has intubated only for airway protection due to her altered mentation from suspected alcohol and benadryl overdose. Her EKG is stable. She is medically stable and will consult MR. Transfer to medical floor.
[2019-10-25] MEDS: Lactated Ringer's 1,000 ML IV SCH (06:34)
[2019-10-25] MEDS ORDERED: Potassium Chloride 20 MEQ/100 ML PREMIX BAG IVPB SCH (06:45)
[2019-10-25 07:17] LABS: Actual Bicarbonate (HCO3a) 19.9 mEq/L (22-28); Base Excess (BEa) -2.8 mEq/L (-2.0 to +3.0); Carboxyhemoglobin (COHb) 0.3 gm% (0.0-3.0); Hemoglobin (Hb) 13.1 g/dL (12.0-16.0); O2 Tension (PaO2), arterial 67.4 mmHg (80.0-100.0); Potassium - ABG Lab 3.24 mmol/L (3.70-5.30); pH, Arterial 7.46 (7.35-7.45)
[2019-10-25 07:20] LABS: Puncture Site RRA
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
[2019-10-25] MEDS: Ondansetron PF 4 MG/2 ML Vial IVP PRN ×2 (08:26→16:52)
[2019-10-25] MEDS: Famotidine/PF 20 mg/2ml Vial SLOW IVP SCH ×2 (08:26→19:44)
[2019-10-25] MEDS ORDERED: Enoxaparin Sodium 40 MG/0.4 ML SYRINGE SC SCH (09:00)
[2019-10-25] MEDS ORDERED: Lorazepam 2 MG/ML VIAL SLOW IVP SCH (09:30)
--- NOTE | 2019-10-25 12:44 | PRG ---
DATE OF SERVICE: 10/25/2019 SUBJECTIVE: Jasmyn Cai awakened quickly this morning. She is in no distress. Chest radiograph showed no infiltrates. She quickly moved all extremities to command. OBJECTIVE: VITAL SIGNS: She is afebrile. Heart rate 87, respiratory rate 16, oximetry is in the 90s, blood pressure 120/78. LUNGS: Clear. HEART: Regular rhythm. ABDOMEN: Soft. EXTREMITIES: Without edema. NEUROLOGIC: Nonfocal. She nodded to questions of did she take a bunch of pills in addition to drinking alcohol. She quickly nodded yes. LABORATORY DATA: White count 16.6, hemoglobin 13, platelets 203. Sodium 140, potassium 3.2, chloride 108, bicarb 20, BUN 9, creatinine 0.75. Not surprisingly, blood alcohol level is zero now. IMPRESSION AND PLAN: Alcohol intoxication, complicated by ingestion of multiple sedating drugs leading to intubation. She was a candidate for extubation. She subsequently then extubated successfully and will be transferred out to a medical floor. Once she is deemed stable for 24 hours, [facility] can be consulted. Critical care time 30 min. Job ID: [id number] MTDD
[2019-10-25 13:05] VITALS: BMI 23.0
[2019-10-25] MEDS ORDERED: Melatonin 3 MG TAB PO PRN (19:29)
[2019-10-25] MEDS: hydrOXYzine 25 MG TAB PO PRN (19:43)
[2019-10-26] MEDS: hydrOXYzine 25 MG TAB PO PRN (05:17)
--- NOTE | 2019-10-26 06:05 | PDOC.FM ---
- Subjective Subjective: Patient was sleeping at the time of evaluation with a sitter present, but was easily arousable to verbal stimuli. Patient continued to endorse an anxious and depressed mood, and reported great difficulty with sleeping during the night. Patient was extremely concerned about the need to transfer to an in-patient psychiatric facility as this may negatively affect her employment. Patient was reassured that her mental health was of absolute importance and that additional monitoring and evaluation would be required based on her history of previous suicide attempts and escalating frequency and intensity of overdosing on EtOH and/or Rx or OTC medications. - Objective Vital Signs & Weight: Vital Signs (12 hours) Temp Pulse Resp BP BP Pulse Ox 10/26/19 04:00 97.6 F 76 16 115/57 L 92 L 10/25/19 21:00 119/71 10/25/19 20:00 97.9 F 78 16 119/71 94 L Weight Admit Weight 70.307 kg Weight 70.7 kg Most Recent Monitor Data Heart Rate from ECG 75 NIBP 137/91 NIBP BP-Mean 106 Respiration from ECG 20 SpO2 98 I&O: 10/24/19 10/25/19 10/26/19 06:59 06:59 06:59 Intake Total 1164 180 Output Total 377 120 Balance 787 60 Result Diagrams: 10/25/19 03:17 10/25/19 03:17 Phys Exam - Physical Examination Constitutional: NAD Neck: supple, full ROM Respiratory: no wheezing, no rales, no rhonchi, clear to auscultation bilateral Cardiovascular: RRR, no significant murmur, no rub Gastrointestinal: soft, non-tender, no distention, positive bowel sounds Musculoskeletal: no edema, pulses present Neurological: non-focal, moves all 4 limbs No tremor, diaphoresis Deviation from normal: Depressed affect Dx/Plan (1) Encephalopathy acute Code(s): G93.40 - ENCEPHALOPATHY, UNSPECIFIED Status: Acute (2) Alcohol abuse Code(s): F10.10 - ALCOHOL ABUSE, UNCOMPLICATED Status: Chronic (3) Anxiety and depression Code(s): F41.9 - ANXIETY DISORDER, UNSPECIFIED; F32.9 - MAJOR DEPRESSIVE DISORDER, SINGLE EPISODE, UNSPECIFIED Status: Chronic (4) Suicide attempt Status: Acute (5) Diphenhydramine overdose Code(s): T45.0X1A - POISONING BY ANTIALLERG/ANTIEMETIC, ACCIDENTAL, INIT Status: Acute (6) SSRI overdose Code(s): T43.221A - POISN BY SELECTIVE SEROTONIN REUPTAKE INHIBTR, ACC, INIT Status: Acute - Plan Plan: Patient is a 39 y/o female with a PMH significant for EtOH Abuse, Anxiety, Depression and multiple Suicide Attempts who presents from an outside facility after being found down following an EtOH binge and drug overdose. #Acute Respiratory Failure and Metabolic Encephalopathy 2/2 severe EtOH Intoxication and Intentional Drug Overdose -Per ED check-out and Resident Night Team notes, patient was found down following a severe EtOH binge with multiple pill bottles scattered around her home -Plasma EtOH: 310 on admission - undetectable on 10/24 prior to transfer to Medical Floor -Urine/Plasma Drug Screen: Negative -Patient's mother reported possible overdose with Citalopram, Trazadone and Diphenhydramine -Resident Night Team reported that Poison Control was contacted by outside facility - recommended close monitoring for QRS prolongation with serial EKGs - repeat EKG was unremarkable -WBCs: 19.6 > 16.6 - will continue to trend -Trop: < 0.01 -Lipase: 44 -Procal: 0.03 - low suspicion for Aspiration Pneumonia -CPK: 108 -CXR: NAF x2 -UA: WNL -COVID: Pending -ASE Protocol -Lorazepam 2 mg IV PRN for EtOH Withdrawal -Soft Restraints PRN -Patient was intubated at outside facility due to severe vomiting and inability to protect airway - extubated on 10/24 #EtOH Abuse -Per chart review, patient has a Hx of EtOH Abuse, rehab attempts and multiple hospitalizations -MHMR recommended inpatient hospitalization at outside psych facility -Will continue to encourage abstinence and participation in 12 Step Program following DC #Suicide Attempt -Per chart review, patient has a Hx of multiple intentional overdoses in the past -Sitter present in room -Mental Health Warrant / Notification of Emergency Long-Term issued on 10/23 - will contact Tom SINGH if patient attempts to leave AMA -MHMR recommended inpatient hospitalization at outside psych facility #Anxiety -Per chart review, patient has a documented Hx of Anxiety in the past - not currently taking medications -Likely be contributing factor to above -MHMR recommended inpatient hospitalization at outside psych facility #Depression -Per chart review, patient has a documented Hx of Depression in the past - not currently taking medications -Likely be contributing factor to above -MHMR recommended inpatient hospitalization at outside psych facility #Hypokalemia -K: 3.3 on 10/24 - will replace PCP: CC Code: Full Diet: HH w/ Low Sodium IVF: None Activity: Ad sonali VTE PPx: None - MELVINA Score: 0 GI PPx: Famotidine Dispo: Patient is currently medically stable and being observed on the Medical Floor following severe EtOH Intoxication and intentional Drug Overdose representing a likely Suicide Attempt. Patient is currently extubated with appropriate O2Sats, maintaining PO intake and PO hydration. [facility] recommended transfer to inpatient psych facility - will coordinate as needed. Will follow ASE Protocol and monitor for signs of withdrawal closely. Expected LOS < 24H. Addendum - Attending - Attending Attestation Date/Time: 10/26/19 9976 I personally evaluated the patient and discussed the management with Dr. Lo. I agree with the History, Examination, Assessment and Plan documented above with any addition or exceptions noted below. Patient stable. Awaiting inpatient psych placement.
[2019-10-26] MEDS: Famotidine/PF 20 mg/2ml Vial SLOW IVP SCH (08:25)
[2019-10-26] MEDS ORDERED: Lorazepam 0.5 MG TAB PO SCH ×2 (13:00→19:30)
--- NOTE | 2019-10-27 07:55 | PDOC.EVN ---
Addendum - Attending - Attending Attestation Date/Time: 10/27/19 5073 I personally evaluated the patient and discussed the management with Dr. Richard Resendez. I agree with the History, Examination, Assessment and Plan documented in progress note with any addition or exceptions noted below. Patient stable for discharge. Awaiting Inpatient Psych acceptance due to her OD and SI.
--- NOTE | 2019-10-27 07:59 | PDOC.FM ---
- Subjective Subjective: Pt is doing well today; she feels she can look at things with clarity now and remembers everything that happened. She feels she needs to break up with her boyfriend and would like to move to . [place] with a friend who is supportive of her and her mental health. She does not want to go to an inpatient facility - she is afraid about the status of her job and about her cat because she has no one to go check up on it. She states she has been on Paxil in the past but stopped taking it months ago when she ran out of refills and did not have insurance so she could not go back to the doctor. She realizes now she needs to be put back on some medication. She denies desire to self-harm and suicidal ideation. - Objective Vital Signs & Weight: Vital Signs (12 hours) Temp Pulse Resp BP Pulse Ox 10/27/19 07:37 97.0 F L 62 18 124/71 96 10/27/19 04:00 97.4 F L 65 16 121/72 98 10/27/19 01:07 96.7 F L 70 16 106/58 L 97 10/26/19 20:00 97.7 F 84 20 114/60 96 Weight Admit Weight 70.307 kg Weight 70.7 kg Most Recent Monitor Data Heart Rate from ECG 75 NIBP 137/91 NIBP BP-Mean 106 Respiration from ECG 20 SpO2 98 I&O: 10/26/19 10/27/19 10/28/19 06:59 06:59 06:59 Intake Total 180 Output Total 120 Balance 60 Result Diagrams: 10/25/19 03:17 10/25/19 03:17 Phys Exam - Physical Examination Constitutional: NAD Neurological: non-focal Psychiatric: normal affect (Upset by thought of going to inpt facility.), A&O x 3 Thought process logical, clear, goal-oriented. No SI/HI. Dx/Plan - Plan Plan: Acute Respiratory Failure and Metabolic Encephalopathy 2/2 severe EtOH Intoxication and Intentional Drug Overdose - Patient was found down following a severe EtOH binge with multiple pill bottles scattered around her home Patient's mother reported possible overdose with Citalopram, Trazadone and Diphenhydramine Poison Control was contacted by outside facility who recommended close monitoring for QRS prolongation with serial EKGs. Repeat EKG was unremarkable Patient was intubated at outside facility due to severe vomiting and inability to protect airway - extubated on 10/24 - Plasma EtOH: 310 on admission - undetectable on 10/24 prior to transfer to Medical Floor ASE protocol in place - Urine/Plasma Drug Screen: Negative - WBCs: 19.6 -> 16.6 - Trop: < 0.01, Lipase: 44, Procal: 0.03 therefore low suspicion for Aspiration PNA - CXR: NAF x2, UA: WNL - COVID: Pending - Lorazepam 0.5 mg PO for anxiety. One time dose each time - Sitter in room at all times - [facility] recommended inpt hospitalization. Placement pending Pt resistant but mental health warrant in place therefore cannot leave AMA Suicide Attempt - Per chart review, patient has a Hx of multiple intentional overdoses in the past - Sitter present in room - Mental Health Warrant / Notification of Emergency [facility] issued on 10/23 - will contact Tom SINGH if patient attempts to leave AMA - MR recommended inpatient hospitalization at outside psych facility Anxiety - Per pt, she has a documented Hx of Anxiety in the past - Previously on Paxil. Discontinued months ago d/t lack of job and insurance - MR recommended inpatient hospitalization at outside psych facility Depression - Per patient, she has a documented Hx of Depression in the past - Previously on Paxil. Discontinued months ago d/t lack of job and insurance - [facility] recommended inpatient hospitalization at outside psych facility EtOH Abuse - Per chart review, patient has a Hx of EtOH Abuse, rehab attempts and multiple hospitalizations - [facility] recommended inpatient hospitalization at outside psych facility - Will continue to encourage abstinence and participation in 12 Step Program following DC Hypokalemia - K: 3.3 on 10/24 - Suspected to be d/t vomiting PCP: CC Code: Full Diet: HH w/ Low Sodium IVF: None Activity: Ad sonali VTE PPx: None - MELVINA Score: 0 GI PPx: None Dispo: Patient is currently medically stable and being observed on the Medical Floor pending placement to inpt psych facility as recommended by [facility]. Expected LOS < 24H.
[2019-10-27] MEDS ORDERED: Lorazepam 0.5 MG TAB PO SCH ×2 (12:45→20:45)
[2019-10-27 20:26] LABS: #Eosinphils 0.2 thou/uL (0.0-0.7); #Lymphocytes 2.3 thou/uL (1.20-3.40); #Monocytes 0.5 thou/uL (0.11-0.59); #Neutrophils 6.5 thou/uL (1.40-6.50); %Basophils 0.4 % (0.0-1.0); %Eosinophils 2.4 % (0.0-10.0); %Lymphocytes 23.6 % (21.0-51.0); %Monocytes 5.6 % (0.0-10.0); Hemoglobin 13.3 g/dL (12.0-16.0); Mean Corpuscular HGB CONC 34.5 g/dL (32.0-36.0); Mean Corpuscular Hemoglobin 31.3 pg (27.0-31.0); Mean Corpuscular Volume 90.8 fL (78.0-98.0); Mean Platelet Volume 9.2 fL (7.4-10.4); Platelet Count 185 thou/uL (130-400); RBC Distribution Width 12.5 % (11.5-14.5); Red Blood Cell (RBC) Count 4.24 mill/uL (4.20-5.40); White Blood Cell (WBC) Count 9.6 thou/uL (4.8-10.8)
[2019-10-27 20:49] LABS: ALT (SGPT) 24 U/L (8-55); AST (SGOT) 21 U/L (5-34); Albumin 3.8 g/dL (3.5-5.0); Alkaline Phosphatase 80 U/L (40-110); Anion Gap 12 mmol/L (10-20); BUN (Urea Nitrogen) 11 mg/dL (7.0-18.7); Bilirubin, Total 0.3 mg/dL (0.2-1.2); Calc. Creatinine Clearance 116 mL/min (70-130); Calcium 8.6 mg/dL (7.8-10.44); Carbon Dioxide 25 mmol/L (22-29); Chloride 103 mmol/L (98-107); Estimated GFR-MDRD 90; Globulin 2.8 g/dL (2.4-3.5); Glucose 117 mg/dL (70-105); Potassium 4.2 mmol/L (3.5-5.1); Protein, Total 6.6 g/dL (6.0-8.3); Sodium 136 mmol/L (136-145)
[2019-10-27] MEDS ORDERED: Nicotine 14 MG PATCH TOP SCH (21:00)
--- NOTE | 2019-10-27 21:52 | RAD ---
PORTABLE CHEST: 10/27/19 HISTORY: Follow-up extubation. COMPARISON: 10/25/19 exam. Endotracheal and NG tubes have been removed since that prior exam. Heart size and mediastinal structu res are within normal limits. The lungs are clear of infiltrates. IMPRESSION: No active intrathoracic disease. POS: OFF
[2019-10-28 05:56] VITALS: BP 113/72; TEMP 97
--- NOTE | 2019-10-30 11:33 | DIS ---
DATE OF ADMISSION: 10/24/2019 DATE OF DISCHARGE: 10/28/2019 RESIDENT: Bridgette Wheeler MD ADMITTING ATTENDING: Dr. Dav Richardson. DISCHARGE ATTENDING: Dr. Dav Richardson. CONSULTS: Pulmonology (10/23), [facility] (10/24). PROCEDURES: Intubation on 10/23, performed at outside ED followed by extubation on 10/24. PRIMARY DIAGNOSIS: Acute respiratory failure. SECONDARY DIAGNOSES: Metabolic encephalopathy secondary to drug/alcohol overdose, suicide attempt, depression, anxiety, history of alcohol abuse, history of withdrawal seizures. DISCHARGE MEDICATIONS: 1. Melatonin 3 mg. 2. Nicotine patch 14 mg. DISCONTINUED MEDICATIONS: None. HISTORY OF PRESENT ILLNESS/HOSPITAL COURSE: The patient is a 39-year-old female who presented as a transfer from [facility] due to alcohol and drug overdose. She was intubated at that hospital; history was reported by the nurse who spoke with family as well as from outside records. The patient was found at home with empty bottles of citalopram, trazodone, benadryl, and had been consuming alcohol. After EMS arrival, she became unresponsive and began vomiting so she was intubated to protect her airway. Plasma alcohol on admission was 310 so ASE protocol was initiated. UDS was negative and chest x-ray normal. A potassium of 3.3 was seen on labs which was suspected to be secondary to her vomiting and was replaced. A mental health warrant was obtained so that the patient could not leave AMA. The patient was extubated on 10/24 per Pulmonology recommendations. On 10/25 and 10/26, [facility] recommended inpatient hospitalization at an outside psych facility. Preparations were made at [place] for transfer, and she was discharged on the evening of 10/26 for official transport on 10/27 in the a.m. DISPOSITION: Stable. DISCHARGE INSTRUCTIONS: Location: [place]. Diet: Normal. Activity: As tolerated. Followup: With a PCP and/or psychiatrist upon discharge from inpatient hospitalization. Job ID: [id number] MTDD
--- NOTE | 2019-10-31 20:07 | EKG ---
Test Reason : PREOP Blood Pressure : / mmHG Vent. Rate : 084 BPM Atrial Rate : 084 BPM P-R Int : 128 ms QRS Dur : 074 ms QT Int : 390 ms P-R-T Axes : 070 033 051 degrees QTc Int : 460 ms Normal sinus rhythm Normal ECG No previous ECGs available Confirmed by DR. Lala SMITH MD ([id number]) on 10/31/2019 8:06:57 PM Referred By: JAIME Confirmed By:DR. Lala SMITH MD
== END 2019-10-28 07:35 | disposition short-term general hospital (02) | DRG 896 ==
LOC: CCU 17:32 → T4-B 10-25 10:11
PROVIDERS: ADMIT Student in an Organized Health Care Education/Training Program; ATTEND Student in an Organized Health Care Education/Training Program
PROC: 5A1935Z Respiratory Ventilation, Less than 24 Consecutive Hours (ICD-10-PCS; principal; 2019-10-24)
DX: F10.129 Alcohol abuse with intoxication, unspecified (principal); G92 Toxic encephalopathy; J96.00 Acute respiratory failure, unspecified whether with hypoxia or hypercapnia; E87.2 Acidosis; E87.6 Hypokalemia; T45.0X2A Poisoning by antiallergic and antiemetic drugs, intentional self-harm, initial encounter; Y90.8 Blood alcohol level of 240 mg/100 ml or more; F32.9 Major depressive disorder, single episode, unspecified; F41.9 Anxiety disorder, unspecified; T43.222A Poisoning by selective serotonin reuptake inhibitors, intentional self-harm, initial encounter; Z79.899 Other long term (current) drug therapy; Z90.49 Acquired absence of other specified parts of digestive tract; Z88.2 Allergy status to sulfonamides; Z88.8 Allergy status to other drugs, medicaments and biological substances
CPT/HCPCS: 36415; 71045; 80053; 80307; 82805; 84145; 84443; 85025; 93005; 93010; 94002; 94003; J1650; J2060; J2405; J2704; J3480; S0028